=== PATIENT | male | born 1980 | race African-American/Black ===

== ENCOUNTER 2017-03-24 20:50 | Emergency (ER) | payer SELFPAY ==
[~2017-03-24] VITALS: Ht 170.2 cm; Wt 75.0 kg
[2017-03-24 20:52] VITALS: BP 148/88; PULSE 102; RESP 15; TEMP 98.5; O2SAT 98
[2017-03-25] MEDS ORDERED: TETANUS/DIPHTHERIA TOXOID ADULT 0.5 ML VIAL IM ONE (00:15)
[2017-03-25] MEDS ORDERED: VANCOMYCIN INJ 1,000 MG in SODIUM CHLOR 0.9% 250 ML INJ 250 ML IV ONE (00:15)
[2017-03-25] MEDS ORDERED: BACT800T5 PO (00:21)
[2017-03-25] MEDS ORDERED: CLIN150C14 PO (00:21)
[2017-03-25] MEDS ORDERED: IBUP-232 PO (00:21)
--- NOTE | 2017-03-25 00:21 | PD ---
HPI Chief Complaint: Skin Problem Time Seen by Provider: 23:47 Travel History International Travel<30 days: No Contact w/Intl Traveler<30days: No Traveled to known affect area: No History of Present Illness HPI 36-year-old male complains of pain and swelling left leg. Patient states that he probably got an insect bite several days ago. Patient states he has increasing pain and swelling left thigh since then. Patient states that he squeezed the left thigh and got some pus out of it yesterday. Patient denies any fever chills. Patient's not up-to-date with TD booster. PFSH Past Medical History Medical History: Denies Significant Hx Diminished Hearing: No Tetanus Vaccination: Unknown Influenza Vaccination: No Past Surgical History Surgical History: No Previous Surgery Social History Alcohol Use: Yes (OCCASIONALLY) Tobacco Use: Yes Substance Use: No Allergies-Medications (Allergen,Severity, Reaction): Coded Allergies: No Known Allergies (Unverified , 03/24/17) Reported Meds & Prescriptions Reported Meds & Active Scripts Active No Active Prescriptions or Reported Medications Review of Systems General / Constitutional: No: Fever Eyes: No: Visual changes HENT: No: Headaches Cardiovascular: No: Chest Pain or Discomfort Respiratory: No: Shortness of Breath Gastrointestinal: No: Abdominal Pain Genitourinary: No: Dysuria Musculoskeletal: No: Pain Skin: No Rash Neurologic: No: Weakness Psychiatric: No: Depression Endocrine: No: Polydipsia Hematologic/Lymphatic: No: Easy Bruising Physical Exam Narrative GENERAL: Well-nourished, well-developed patient. SKIN: Focused skin assessment warm/dry. HEAD: Normocephalic. EYES: No scleral icterus. No injection or drainage. NECK: Supple, trachea midline. No JVD or lymphadenopathy. CARDIOVASCULAR: Regular rate and rhythm without murmurs, gallops, or rubs. RESPIRATORY: Breath sounds equal bilaterally. No accessory muscle use. GASTROINTESTINAL: Abdomen soft, non-tender, nondistended. MUSCULOSKELETAL: Patient has an area of redness swelling tenderness anterior lateral aspect of left thigh. No induration noted. Small open wound noted on the left thigh. No discharge. BACK: Nontender without obvious deformity. No CVA tenderness. Neurologic exam normal. Data Data Last Documented VS Vital Signs Date Time Temp Pulse Resp B/P (MAP) Pulse Ox O2 Delivery O2 Flow Rate FiO2 03/24/17 20:52 98.5 102 15 148/88 (108) 98 Room Air Orders Orders Vancomycin Inj (Vancomycin Inj) (03/25/17 00:15) Tetanus/Diphtheria Tox Adult (Tetanus/Di (03/25/17 00:15) MDM Medical Decision Making Medical Screen Exam Complete: Yes Emergency Medical Condition: Yes Differential Diagnosis Differential diagnosis including cellulitis, abscess. Narrative Course 36-year-old male with an area of redness swelling tenderness left thigh. TD booster given. Vancomycin 1 g IV given. Diagnosis Primary Impression: Left leg cellulitis Patient Instructions: General Instructions Additional Instructions: Take medications as directed. Return in 2 days for recheck. Med/Other Pt SpecificInfo: Prescription(s) given Scripts Ibuprofen (Ibuprofen) 600 Mg Tab 600 MG PO TID for Pain, #30 TAB 0 Refills Prov: Cesar Liu MD 03/25/17 Sulfamethoxazole-Trimethoprim (Bactrim DS) 800-160 Mg Tab 1 TAB PO BID for Infection, #20 TAB 0 Refills Prov: Cesar Liu MD 03/25/17 Clindamycin (Clindamycin) 150 Mg Cap 2 TAB PO Q6H for Infection, #80 CAP 0 Refills Prov: Cesar Liu MD 03/25/17 Disposition: 01 DISCHARGE HOME Condition: Stable Cesar Liu MD Mar 25, 2017 00:21
[2017-03-25 02:27] VITALS: BP 135/79; PULSE 97; RESP 18; O2SAT 100
== END 2017-03-25 03:25 | disposition home or self-care (01) ==
LOC: NEPK 20:50 → NEPE 03-25 03:25
DX: L03.116 Cellulitis of left lower limb (principal); Z72.0 Tobacco use; Z23 Encounter for immunization
CPT/HCPCS: 90471; 90714; 96374; 99284; J3370; J7050

== ENCOUNTER 2017-03-28 18:35 | Emergency (ER) | payer SELFPAY ==
[~2017-03-28 18:35] MED LIST: BACT800T5 PO; CLIN150C14 PO; IBUP-232 PO
[2017-03-28 18:37] VITALS: BP 130/74; PULSE 64; RESP 15; TEMP 98.2; O2SAT 99
--- NOTE | 2017-03-28 19:42 | PD ---
HPI Chief Complaint: Skin Problem Time Seen by Provider: 19:27 Travel History International Travel<30 days: No Contact w/Intl Traveler<30days: No Traveled to known affect area: No History of Present Illness HPI Patient comes back to the emergency Department for recheck of questionable spider bite to his left thigh. Patient states he was seen here several days ago and is here for recheck. Patient states he is taking all medication as prescribed. Patient denies any change in symptoms. Pain is worse to palpation. Denies any radiation of the pain. Pain is burning/throbbing like in nature. Patient tried placing warm compresses made the area feels cold. Denies any fevers or IV drug use. PFSH Past Medical History Medical History: Denies Significant Hx Diminished Hearing: No Social History Alcohol Use: Yes (OCCASIONALLY) Tobacco Use: Yes Substance Use: No Allergies-Medications (Allergen,Severity, Reaction): Coded Allergies: No Known Allergies (Unverified , 03/24/17) Reported Meds & Prescriptions Reported Meds & Active Scripts Active Ibuprofen 600 Mg Tab 600 Mg PO TID Bactrim DS (Sulfamethoxazole-Trimethoprim) 800-160 Mg Tab 1 Tab PO BID Clindamycin (Clindamycin HCl) 150 Mg Cap 2 Tab PO Q6H Review of Systems Except as stated in HPI: all other systems reviewed are Neg Physical Exam Narrative GENERAL: Well-developed, well nourished, in no acute distress, and non-ill appearing. SKIN: Induration fluctuation of left lateral thigh. There is no drainage. Is tender to palpation. There is no crepitus. HEAD: Atraumatic. Normocephalic. EYES: Pupils equal and round. EOMI. No scleral icterus. No injection or drainage. ENT: No nasal bleeding or discharge. Mucous membranes pink and moist. NECK: Trachea midline. Supple. No nuclear rigidity. RESPIRATORY: No accessory muscle use. No respiratory distress. MUSCULOSKELETAL: No obvious deformities. No clubbing. No cyanosis. No edema. Full range of motion. NEUROLOGICAL: Awake and alert. No obvious cranial nerve deficits. Motor grossly within normal limits. Normal speech. PSYCHIATRIC: Appropriate mood and affect; insight and judgment normal. Data Data Last Documented VS Vital Signs Date Time Temp Pulse Resp B/P (MAP) Pulse Ox O2 Delivery O2 Flow Rate FiO2 03/28/17 18:37 98.2 64 15 130/74 (92) 99 Orders Orders Wound Culture And Gram Stain (03/28/17 19:37) Bupivacaine-Epi Pf 0.5% Inj (Sensorcaine (03/28/17 19:45) Lidocaine 1% Inj (Xylocaine 1% Inj) (03/28/17 19:45) Ed Discharge Order (03/28/17 20:07) MDM Medical Decision Making Medical Screen Exam Complete: Yes Emergency Medical Condition: Yes Medical Record Reviewed: Yes Differential Diagnosis Abscess, cellulitis, gangrene, folliculitis, other Narrative Course The patient has no evidence of significant cellulitis. There is no evidence of necrotizing fasciitis/ [place] at this time. The patient is to continue his antibiotics. The patient was given signs and symptoms warnings for worsening infection, such as spreading of redness, increasing pain, and/or swelling, associated heat, or fever or feels worse, and instructed to return immediately if these signs or symptoms worsen. The patient is to return in 2 days for recheck. Sooner if worsens or as needed. The patient agrees with plan. Patient in no obvious distress upon re-evaluation. Any questions/concerns in reference to patient diagnosis/condition discussed and clarified prior to patient's discharge. Reinforced sheer importance of close follow up with patient 's primary physician or primary care clinic. Instructed patient to return to ED immediately, if symptoms return/worsen. Patient showed understanding of above instructions. Further instructions and recommendations were detailed in discharge paperwork. Patient ambulated without difficulty out of ED at discharge. Procedures Procedure Narrative INCISION AND DRAINAGE OF ABSCESS: Verbal consent was obtained. The area was prepped. A subcutaneous wheal of 1% Xylocaine without epi with a total number 3 mL was used to anesthetize the area. The area was properly anesthetized. A number 11 scalpel was used to make a - -cm incision across the area of the abscess. The abscess was drained and irrigated with normal saline. Quarter inch iodoform packing was placed in the wound. Sterile dressing applied by nurse. Patient tolerated procedure well. Patient advised to return here in 2 days to have packing removed and wound rechecked. Patient verbalized understanding. Diagnosis Primary Impression: Abscess of left thigh Referrals: [facility] Patient Instructions: Abscess (ED), Abscess Incision and Drainage (DC), General Instructions Additional Instructions: Follow-up with your primary care physician or return here in 2 days for recheck. Take all medication as previously prescribed. Apply warm compresses to affected area to facilitate drainage. Return to the emergency department if symptoms get worse. Disposition: 01 DISCHARGE HOME Condition: Stable Karthik Barrientos Mar 28, 2017 19:42
[2017-03-28] MEDS ORDERED: LIDOCAINE HCL 1% 30 ML VIAL INFIL ONE (19:45)
[2017-03-28] MEDS ORDERED: BUPIVACAINE/EPINEPHRINE 0.5% PF 30 ML VIAL NERV BLOCK ONE (19:45)
== END 2017-03-28 21:31 | disposition home or self-care (01) ==
LOC: NEPK 18:35
DX: L02.416 Cutaneous abscess of left lower limb (principal); B95.62 Methicillin resistant Staphylococcus aureus infection as the cause of diseases classified elsewhere; Z72.0 Tobacco use
CPT/HCPCS: 10061; 86403; 87070; 87186; 87205

== ENCOUNTER 2017-03-30 23:20 | Emergency (ER) | payer SELFPAY ==
[~2017-03-30] VITALS: Ht 170.2 cm; Wt 70.0 kg
[2017-03-30 23:22] VITALS: BP 127/76; PULSE 73; RESP 16; TEMP 98; O2SAT 98
--- NOTE | 2017-03-30 23:37 | PD ---
HPI Chief Complaint: Skin Problem Time Seen by Provider: 23:29 Travel History International Travel<30 days: No Contact w/Intl Traveler<30days: No Traveled to known affect area: No History of Present Illness HPI 36-year-old black male presents from her department for a 2 day recheck of a abscess IND of his left thigh. The patient states that it is much improved. He denies any fever chills. Symptoms are mild. No alleviating factors. No exacerbating factors. PFSH Past Medical History Medical History: Denies Significant Hx Diminished Hearing: No Past Surgical History Surgical History: No Previous Surgery Social History Alcohol Use: Yes (OCCASIONALLY) Tobacco Use: Yes (OCC) Substance Use: No Allergies-Medications (Allergen,Severity, Reaction): Coded Allergies: No Known Allergies (Unverified , 03/30/17) Reported Meds & Prescriptions Reported Meds & Active Scripts Active Ibuprofen 600 Mg Tab 600 Mg PO TID Bactrim DS (Sulfamethoxazole-Trimethoprim) 800-160 Mg Tab 1 Tab PO BID Clindamycin (Clindamycin HCl) 150 Mg Cap 2 Tab PO Q6H Review of Systems General / Constitutional: No: Fever Eyes: No: Visual changes HENT: No: Headaches Cardiovascular: No: Chest Pain or Discomfort Respiratory: No: Shortness of Breath Gastrointestinal: No: Abdominal Pain Genitourinary: No: Dysuria Musculoskeletal: No: Pain Skin: No Rash Neurologic: No: Weakness Psychiatric: No: Depression Endocrine: No: Polydipsia Hematologic/Lymphatic: No: Easy Bruising Physical Exam Narrative GENERAL: This is a well-nourished, well-developed patient, in no apparent distress. SKIN: No rashes, ecchymoses or lesions. Warm and dry. HEAD: Atraumatic. Normocephalic. EYES: PERRL, EOMI, no discharge or injection. No scleral icterus. EARS: Clear NOSE: Nasal turbinates appear normal. THROAT: Mucosa pink and moist. Airway patent. NECK: Trachea midline. supple, moves head freely. LUNGS: Clear to auscultation. CV: Regular in rhythm. ABDOMEN: Soft nontender. EXT: No clubbing cyanosis or edema. Patient has resolving abscess to left thigh. The dressing is removed as well as the packing. There is no fluctuance or pointing. This chronic tissue is mildly indurated and tender. Erythema is much improved. Data Data Last Documented VS Vital Signs Date Time Temp Pulse Resp B/P (MAP) Pulse Ox O2 Delivery O2 Flow Rate FiO2 03/30/17 23:22 98.0 73 16 127/76 (93) 98 Room Air Orders Orders Ed Discharge Order (03/30/17 23:35) MDM Medical Decision Making Medical Screen Exam Complete: Yes Emergency Medical Condition: Yes Medical Record Reviewed: Yes Differential Diagnosis MDM: High Differential diagnoses: Abscess, folliculitis, cellulitis, lymphangitis, abrasion, contact dermatitis Narrative Course Healing left thigh abscess Diagnosis Primary Impression: healing left thigh abscess Patient Instructions: General Instructions Additional Instructions: Rest. Elevation. keep clean and dry. Warm compresses. Daily wound care with soap, water and Neosporin. Three Advil every 6 hours. Medication to complete. Follow-up with a primary care doctor in one week. Return to the ER for any problems. Med/Other Pt SpecificInfo: Wound Care Disposition: 01 DISCHARGE HOME Condition: Stable Mannie Acevedo Mar 30, 2017 23:37
== END 2017-03-31 00:07 | disposition home or self-care (01) ==
LOC: NEPD 23:20
DX: L02.416 Cutaneous abscess of left lower limb (principal); Z51.89 Encounter for other specified aftercare; Z72.0 Tobacco use
CPT/HCPCS: 99281

== ENCOUNTER 2017-04-14 23:43 | Emergency (ER) | payer SELFPAY ==
[2017-04-14 23:46] VITALS: BP 120/66; PULSE 70; RESP 16; TEMP 97.6; O2SAT 98
[2017-04-15] MEDS ORDERED: DICL75TA PO (01:11)
[2017-04-15] MEDS ORDERED: BACT800T5 PO (01:11)
[2017-04-15] MEDS ORDERED: NAPROXEN 500 MG TAB PO ONE (01:15)
[2017-04-15] MEDS ORDERED: SULFAMETHOXAZOLE-TRIMETHOPRIM DS 800-160 MG TAB PO ONE (01:15)
--- NOTE | 2017-04-15 01:23 | PD ---
HPI Chief Complaint: Wound/Suture/Staple Re-Check Time Seen by Provider: 00:57 Travel History International Travel<30 days: No Contact w/Intl Traveler<30days: No Traveled to known affect area: No History of Present Illness HPI 36-year-old black male presents emergency Department with complaints of left wrist and hand pain. Patient states that over the last few days he has developed pain mainly in his thumb. He examined his hand and noticed a painful lump to the volar radial wrist. Patient denies any trauma. He states that the pain is worse when he moves his thumb her grasps. Some relief with elevation. He also states that he had a abscess to his left thigh a few weeks ago and he has noticed some increasing tenderness and thickening to the top portion. Small amount of pus discharge. PFSH Past Medical History Narrative Medical Abscess Diminished Hearing: No Tetanus Vaccination: < 5 Years ?: Not Past Surgical History Surgical History: No Previous Surgery Social History Alcohol Use: Yes (OCCASIONALLY) Tobacco Use: Yes (OCC) Substance Use: No Allergies-Medications (Allergen,Severity, Reaction): Coded Allergies: No Known Allergies (Unverified , 03/30/17) Reported Meds & Prescriptions Reported Meds & Active Scripts Active Diclofenac Sodium DR (Diclofenac Sodium) 75 Mg Tabdr 75 Mg PO BID Bactrim DS (Sulfamethoxazole-Trimethoprim) 800-160 Mg Tab 1 Tab PO BID Review of Systems General / Constitutional: No: Fever Eyes: No: Visual changes HENT: No: Headaches Cardiovascular: No: Chest Pain or Discomfort Respiratory: No: Shortness of Breath Gastrointestinal: No: Abdominal Pain Genitourinary: No: Dysuria Musculoskeletal: Positive: Arthralgias, Limited ROM, Weakness, Cramping, Edema , Pain Skin: No Rash Neurologic: No: Weakness Psychiatric: No: Depression Endocrine: No: Polydipsia Hematologic/Lymphatic: No: Easy Bruising Physical Exam Narrative GENERAL: This is a well-nourished, well-developed patient, in no apparent distress. SKIN: Examination the patient's left thigh reveals a area of healed abscess. There is a area of induration just above it measuring 3 x 3 cm of induration him a erythema warmth and thickening. Appears that there is some developing secondary wound infection., ecchymoses or lesions. Warm and dry. HEAD: Atraumatic. Normocephalic. EYES: PERRL, EOMI, no discharge or injection. No scleral icterus. EARS: Clear NOSE: Nasal turbinates appear normal. THROAT: Mucosa pink and moist. Airway patent. NECK: Trachea midline. supple, moves head freely. LUNGS: Clear to auscultation. CV: Regular in rhythm. ABDOMEN: Soft nontender. EXT: No clubbing cyanosis or edema. Examination of the left upper extremity reveals tenderness over the volar radial wrist with a 1 cm nodular density under the skin. There is some tenderness up into the thenar eminence and into the MCP of the thumb. He has decreased range of motion due to pain. There is no pain in the index, middle, ring, little finger he has intact gross sensation and good pulses. The compartments of the forearm are supple. Doppler of the pulses are normal. There are loud audible. No pain in the forearm, elbow or shoulder. Data Data Last Documented VS Vital Signs Date Time Temp Pulse Resp B/P (MAP) Pulse Ox O2 Delivery O2 Flow Rate FiO2 04/14/17 23:46 97.6 70 16 120/66 (84) 98 Room Air Orders Orders Sulfamet-Trimeth Ds 800-160 Mg (Bactrim (04/15/17 01:15) Naproxen (Naprosyn) (04/15/17 01:15) [facility] Medical Decision Making Medical Screen Exam Complete: Yes Emergency Medical Condition: Yes Medical Record Reviewed: Yes Differential Diagnosis Differential diagnoses: Cellulitis, abscess, sebaceous cyst, ganglion cyst, tendinitis, arthritis Narrative Course Patient's given Bactrim DS and Naprosyn 500 mg by mouth. This is left thigh cellulitis, left thumb tendinitis, left wrist ganglion cyst Diagnosis Primary Impression: Cellulitis of left thigh Additional Impressions: left thumb tendinitis Ganglion cyst of volar aspect of left wrist Patient Instructions: General Instructions Additional Instructions: Rest. Elevation. Warm compresses. Daily wound care with soap, water, Neosporin. Medications as directed. Follow-up with a medical doctor in one week. Return to the ER for any problems. Med/Other Pt SpecificInfo: Prescription(s) given Scripts Diclofenac Sodium (Diclofenac Sodium DR) 75 Mg Tabdr 75 MG PO BID, #20 TAB 0 Refills Prov: Aileen Herr DO 04/15/17 Sulfamethoxazole-Trimethoprim (Bactrim DS) 800-160 Mg Tab 1 TAB PO BID for Infection, #20 TAB 0 Refills Prov: Aileen Herr DO 04/15/17 Mannie Acevedo Apr 15, 2017 01:23
== END 2017-04-15 02:11 | disposition home or self-care (01) ==
LOC: NEPD 23:43
DX: L03.116 Cellulitis of left lower limb (principal); M77.9 Enthesopathy, unspecified; M67.432 Ganglion, left wrist; Z72.0 Tobacco use
CPT/HCPCS: 99284

== ENCOUNTER 2017-04-16 05:05 | Inpatient (IN) | payer SELFPAY ==
[~2017-04-16] VITALS: Ht 170.2 cm; Wt 71.4 kg
[~2017-04-16 05:05] MED LIST changes: -CLIN150C14 PO; +DICL75TA PO; -IBUP-232 PO
[2017-04-16 05:07] VITALS: BP 167/92; PULSE 130; RESP 22; TEMP 100; O2SAT 96
--- NOTE | 2017-04-16 05:49 | PD ---
HPI Chief Complaint: Bite or Sting Time Seen by Provider: 05:42 Travel History International Travel<30 days: No Contact w/Intl Traveler<30days: No Traveled to known affect area: No History of Present Illness HPI Patient is a 36-year-old male who is coming in saying that he developed burning pain on the back blisters that were fluid filled and he felt something running across him like a caterpillar. He has pain that he feels the shaking chills pain is localized he said the fluid popped out of the blisters and now he has just been excoriated open pink area of tissue. Denies being burned denies allergic reaction he was in the ER last night was given one dose of antibiotic and sent home with a prescription which she did not fill. At that time he had his hand is mildly swollen but today his hand looks fine. He is complaining of shaking chills localized pain he is not taking anything for the pain and he is not taking the antibiotic. In the ER his temperature 100.0 PFSH Past Medical History Medical History: Denies Significant Hx Diminished Hearing: No Past Surgical History Surgical History: No Previous Surgery Social History Alcohol Use: Yes (OCCASIONALLY) Tobacco Use: Yes (OCC) Substance Use: No Allergies-Medications (Allergen,Severity, Reaction): Coded Allergies: No Known Allergies (Unverified , 04/16/17) Reported Meds & Prescriptions Reported Meds & Active Scripts Active Diclofenac Sodium DR (Diclofenac Sodium) 75 Mg Tabdr 75 Mg PO BID Bactrim DS (Sulfamethoxazole-Trimethoprim) 800-160 Mg Tab 1 Tab PO BID Review of Systems Except as stated in HPI: all other systems reviewed are Neg Skin: Positive Lesions (he has blisters that look like it popped and he has open pink tissue where the skin is been excoriated as in a second-degree burn.) Physical Exam Narrative GENERAL: TEMP 100 at traige SKin on back of left scapular to left upper humeral area to axilla have bullae that has pealed off and few intact bullae. erythema excoriation to area under his arm 4 cm areas of 2nd degree type [place] SKIN: bullae and excoriation under left axilla to humeral posterio arm and trunk HEAD: Atraumatic. Normocephalic. EYES: Pupils equal and round. No scleral icterus. No injection or drainage. ENT: No nasal bleeding or discharge. Mucous membranes pink and moist. NECK: Trachea midline. No JVD. CARDIOVASCULAR: Regular rate and rhythm. RESPIRATORY: No accessory muscle use. Clear to auscultation. Breath sounds equal bilaterally. GASTROINTESTINAL: Abdomen soft, non-tender, nondistended. Hepatic and splenic margins not palpable. MUSCULOSKELETAL: Extremities without clubbing, cyanosis, or edema. No obvious deformities. NEUROLOGICAL: Awake and alert. No obvious cranial nerve deficits. Motor grossly within normal limits. Five out of 5 muscle strength in the arms and legs. Normal speech. PSYCHIATRIC: Appropriate mood and affect; insight and judgment normal. Data Data Last Documented VS Vital Signs Date Time Temp Pulse Resp B/P (MAP) Pulse Ox O2 Delivery O2 Flow Rate FiO2 04/16/17 05:07 100.0 130 22 167/92 (117) 96 Orders Orders Complete Blood Count With Diff (04/16/17 05:42) Comprehensive Metabolic Panel (04/16/17 05:42) Blood Culture (04/16/17 05:42) Bacitracin Oint (Baciguent Oint) (04/16/17 06:00) Sodium Chlor 0.9% 1000 Ml Inj (Ns 1000 M (04/16/17 07:00) Sodium Chlor 0.9% 1000 Ml Inj (Ns 1000 M (04/16/17 07:00) Diphenhydramine Inj (Benadryl Inj) (04/16/17 07:30) Dext 5%-Nacl 0.45% 1000 Ml Inj (D5w-/2 (04/16/17 07:30) Methylprednisolone So Succ Inj (Solumedr (04/16/17 07:45) Admit Order (Ed Use Only) (04/16/17 07:51) Labs Laboratory Tests Test 04/16/17 06:15 White Blood Count 5.8 TH/MM3 Red Blood Count 4.23 MIL/MM3 Hemoglobin 13.4 GM/DL Hematocrit 38.2 % Mean Corpuscular Volume 90.4 FL Mean Corpuscular Hemoglobin 31.8 PG Mean Corpuscular Hemoglobin Concent 35.1 % Red Cell Distribution Width 13.6 % Platelet Count 232 TH/MM3 Mean Platelet Volume 9.4 FL Neutrophils (%) (Auto) 89.1 % Lymphocytes (%) (Auto) 2.8 % Monocytes (%) (Auto) 5.2 % Eosinophils (%) (Auto) 2.5 % Basophils (%) (Auto) 0.4 % Neutrophils # (Auto) 5.1 TH/MM3 Lymphocytes # (Auto) 0.2 TH/MM3 Monocytes # (Auto) 0.3 TH/MM3 Eosinophils # (Auto) 0.1 TH/MM3 Basophils # (Auto) 0.0 TH/MM3 CBC Comment DIFF FINAL Differential Comment Blood Urea Nitrogen 33 MG/DL Creatinine 2.02 MG/DL Random Glucose 66 MG/DL Total Protein 7.4 GM/DL Albumin 3.1 GM/DL Calcium Level 8.0 MG/DL Alkaline Phosphatase 102 U/L Aspartate Amino Transf (AST/SGOT) 412 U/L Alanine Aminotransferase (ALT/SGPT) 358 U/L Total Bilirubin 0.7 MG/DL Sodium Level 132 MEQ/L Potassium Level 5.2 MEQ/L Chloride Level 102 MEQ/L Carbon Dioxide Level 20.1 MEQ/L Anion Gap 10 MEQ/L Estimat Glomerular Filtration Rate 46 ML/MIN MDM Medical Decision Making Medical Screen Exam Complete: Yes Emergency Medical Condition: Yes Differential Diagnosis allergic reaction local to SJS or TEN or burn from topical chemical or thermal Narrative Course pt was given bactrim yesterday , now probable drug reaction.. pt electrolytes and kidney function labs are off and needs hydration and steroids to avoid allergic reaction progression to SJS or TEN Diagnosis Primary Impression: Allergic reaction Qualified Codes: T78.40XA - Allergy, unspecified, initial encounter Julián Hare MD Apr 16, 2017 05:49
[2017-04-16] MEDS ORDERED: BACITRACIN TOP OINT 15 GM TUBE TOPICAL ONE (06:00)
[2017-04-16 06:24] LABS: AUTOMATED NEUTROPHIL # 5.1 TH/MM3 (1.8-7.7); BASOPHIL % 0.4 % (0.0-2.0); EOSINOPHIL # 0.1 TH/MM3 (0-0.4); EOSINOPHIL % 2.5 % (0.0-4.0); HEMATOCRIT 38.2 % (39.0-51.0); HEMO FLAGS DIFF FINAL; LYMPH % 2.8 % (9.0-44.0); LYMPHOCYTE # 0.2 TH/MM3 (1.0-4.8); MEAN CELL VOLUME 90.4 FL (80.0-100.0); MEAN CORPUSCULAR HEMOGLOBIN 31.8 PG (27.0-34.0); MEAN CORPUSCULAR HGB CONC 35.1 % (32.0-36.0); MONO % 5.2 % (0.0-8.0); NEUT % 89.1 % (16.0-70.0); PLATELET COUNT 232 TH/MM3 (150-450); RED BLOOD COUNT 4.23 MIL/MM3 (4.50-5.90); RED CELL DISTRIBUTION WIDTH 13.6 % (11.6-17.2); WHITE BLOOD COUNT 5.8 TH/MM3 (4.0-11.0)
[2017-04-16 06:42] LABS: ALKALINE PHOSPHATASE 102 U/L (45-117); TOTAL BILIRUBIN ADULT 0.7 MG/DL (0.2-1.0)
[2017-04-16 06:43] LABS: ALT (GPT) 358 U/L (12-78); ANION GAP 10 MEQ/L (5-15); AST (GOT) 412 U/L (15-37); BICARBONATE 20.1 MEQ/L (21.0-32.0); BLOOD UREA NITROGEN 33 MG/DL (7-18); CHLORIDE 102 MEQ/L (98-107); GLOMERULAR FILTRATION RATE 46 ML/MIN (>89); POTASSIUM 5.2 MEQ/L (3.5-5.1); SODIUM (NA) 132 MEQ/L (136-145)
[2017-04-16] MEDS ORDERED: SODIUM CHLOR 0.9% 1000 ML INJ 1,000 ML IV ONE ×4 (07:00→20:00)
[2017-04-16] MEDS ORDERED: diphenhydrAMINE HCL 50 MG/ML VIAL IV PUSH ONE (07:30)
[2017-04-16] MEDS ORDERED: DEXT 5%-NACL 0.45% 1000 ML INJ 1,000 ML IV SCH (07:30)
[2017-04-16] MEDS ORDERED: methylPREDNISolone SOD SUCC 125 MG/2 ML VIAL IV PUSH ONE (07:45)
[2017-04-16 08:16] VITALS: BP 158/89; PULSE 102; RESP 18; O2SAT 98
[2017-04-16] MEDS ORDERED: SENNOSIDES 8.6 MG TAB PO PRN (08:30)
[2017-04-16] MEDS ORDERED: SODIUM CHLORIDE 0.9% FLUSH 10 ML FLUSH IV FLUSH PRN (08:30)
[2017-04-16] MEDS ORDERED: ONDANSETRON HCL 4 MG/2 ML VIAL IVP PRN (08:30)
[2017-04-16] MEDS ORDERED: ACETAMINOPHEN 325 MG TAB PO PRN (08:30)
[2017-04-16] MEDS ORDERED: NALOXONE HCL 0.4 MG/ML AMP IV PUSH PRN (08:30)
[2017-04-16] MEDS ORDERED: LACTULOSE SYRUP 20 GM/30 ML CUP PO PRN (08:30)
[2017-04-16] MEDS ORDERED: MAGNESIUM HYDROXIDE SUSP 30 ML CUP PO PRN (08:30)
[2017-04-16] MEDS ORDERED: BISACODYL 10 MG SUPP RECTAL PRN (08:30)
[2017-04-16] MEDS: DOCUSATE SODIUM 50 MG/SENNA 8.6 MG TAB PO SCH ×2 (09:00→21:00)
[2017-04-16] MEDS: SODIUM CHLOR 0.9% 1000 ML INJ 1,000 ML IV SCH ×2 (09:00→22:20)
[2017-04-16] MEDS: SODIUM CHLORIDE 0.9% FLUSH 10 ML FLUSH IV FLUSH SCH ×2 (09:00→21:00)
[2017-04-16] MEDS ORDERED: Vancomycin Consult Pharmacy 1 EA OTHER SCH ×2 (09:15→15:15)
[2017-04-16] MEDS ORDERED: oxyCODONE/ACETAMINOPHEN 5 MG/325 MG TAB PO PRN (09:30)
--- NOTE | 2017-04-16 09:30 | HHI.HP ---
[facility] Service [facility] Primary Care Physician No Primary Care Physician Admission Diagnosis toxic epidermal necrosis Diagnoses: Travel History International Travel<30 Days: No Contact w/Intl Traveler <30 Da: No Traveled to Known Affected Are: No History of Present Illness 36-year-old male with a past medical history significant for recent left inner thigh abscess presents to the emergency department with a 2 day history of left hand pain and new onset desquamation on the left shoulder and trunk. Patient was seen in the emergency department on 03/25 for a left inner thigh abscess where he was given a 10 day prescription of Bactrim and discharged to home. He returned on 03/28 where an I&D was performed. Patient was instructed to continue his antibiotics which he did. He returned to the emergency department yesterday with a chief complaint of left wrist and hand pain. He was diagnosed with left thumb tendinitis, ganglion cyst of the left wrist and continued left inner thigh cellulitis. He was given another dose of Bactrim and discharged to home with a prescription for Bactrim. The patient did not fill his prescription. He reports that yesterday he developed burning pain and blisters on his posterior left arm and trunk. He states the blisters ruptured in the skin fell off. He has areas of open pink tissue where the skin has sloughed off. He complains of severe pain in his left hand and reports decreased strength in that hand. He also reports that his left inner thigh cellulitis is starting to worsen as the area is becoming thick and continues to drain small amounts of purulent material. Review of Systems Positive fever or chills Denies blurry vision, otorrhea, rhinorrhea Denies sore throat and cough No chest pain, palpitations, shortness of breath No abdominal pain Denies constipation/diarrhea/nausea/vomiting LUE pain/weakness No rashes Past Family Social History Past Medical History None Past Surgical History Unspecified right ear surgery Reported Medications Reported Meds & Active Scripts Active Diclofenac Sodium DR (Diclofenac Sodium) 75 Mg Tabdr 75 Mg PO BID Bactrim DS (Sulfamethoxazole-Trimethoprim) 800-160 Mg Tab 1 Tab PO BID Allergies: Coded Allergies: No Known Allergies (Unverified , 04/16/17) Family History No family history of coronary artery disease or diabetes mellitus. Social History Occasional tobacco. Occasional alcohol. Denies marijuana or illicit drugs. Physical Exam Vital Signs Vital Signs Date Time Temp Pulse Resp B/P (MAP) Pulse Ox O2 Delivery O2 Flow Rate FiO2 04/16/17 08:16 102 18 158/89 (112) 98 Room Air 04/16/17 05:07 100.0 130 22 167/92 (117) 96 Physical Exam GENERAL: male lying in bed SKIN: 5 x 3 centimeter area of induration left inner thigh. No drainage. No fluctuance. Multiple areas of desquamation with a few intact bulla posterior aspect of left arm and shoulder and trunk. HEAD: Atraumatic. Normocephalic. No temporal or scalp tenderness. EYES: Pupils equal round and reactive. Extraocular motions intact. No scleral icterus. No injection or drainage. ENT: Nose without bleeding, purulent drainage or septal hematoma. Throat without erythema, tonsillar hypertrophy or exudate. Uvula midline. Airway patent. NECK: Trachea midline. No JVD or lymphadenopathy. Supple, nontender, no meningeal signs. CARDIOVASCULAR: Regular rate and rhythm without murmurs, gallops, or rubs. RESPIRATORY: Clear to auscultation. Breath sounds equal bilaterally. No wheezes , rales, or rhonchi. GASTROINTESTINAL: Abdomen soft, non-tender, nondistended. No hepato-splenomegaly , or palpable masses. No guarding. MUSCULOSKELETAL: Extremities without clubbing, cyanosis, or edema. No joint tenderness, effusion, or edema noted. No calf tenderness. NEUROLOGICAL: Awake and alert. Cranial nerves II through XII intact. Motor and sensory grossly within normal limits. Normal speech. Laboratory Laboratory Tests Test 04/16/17 06:15 White Blood Count 5.8 Red Blood Count 4.23 Hemoglobin 13.4 Hematocrit 38.2 Mean Corpuscular Volume 90.4 Mean Corpuscular Hemoglobin 31.8 Mean Corpuscular Hemoglobin Concent 35.1 Red Cell Distribution Width 13.6 Platelet Count 232 Mean Platelet Volume 9.4 Neutrophils (%) (Auto) 89.1 Lymphocytes (%) (Auto) 2.8 Monocytes (%) (Auto) 5.2 Eosinophils (%) (Auto) 2.5 Basophils (%) (Auto) 0.4 Neutrophils # (Auto) 5.1 Lymphocytes # (Auto) 0.2 Monocytes # (Auto) 0.3 Eosinophils # (Auto) 0.1 Basophils # (Auto) 0.0 CBC Comment DIFF FINAL Differential Comment Blood Urea Nitrogen 33 Creatinine 2.02 Random Glucose 66 Total Protein 7.4 Albumin 3.1 Calcium Level 8.0 Alkaline Phosphatase 102 Aspartate Amino Transf (AST/SGOT) 412 Alanine Aminotransferase (ALT/SGPT) 358 Total Bilirubin 0.7 Sodium Level 132 Potassium Level 5.2 Chloride Level 102 Carbon Dioxide Level 20.1 Anion Gap 10 Estimat Glomerular Filtration Rate 46 Date/Time Source Procedure Growth Status 04/16/17 06:15 Blood Peripheral Aerobic Blood Culture Pending Received 04/16/17 06:15 Blood Peripheral Anaerobic Blood Culture Pending Received Result Diagram: 04/16/1715 04/16/1715 Capdannie VTE Risk Assessment Kuldip VTE Risk Assessment: No/Low Risk (score <= 1) Caprini Risk Assessment Model Point Value = 1 Point Value = 2 Point Value = 3 Point Value = 5 Age 41-60 Minor surgery BMI > 25 kg/m2 Swollen legs Varicose veins or History of unexplained or recurrent spontaneous Oral contraceptives or hormone replacement Sepsis (< 1 month) Serious lung disease, including pneumonia (< 1 month) Abnormal pulmonary function Acute myocardial infarction Congestive heart failure (< 1 month) History of inflammatory bowel disease Medical patient at bed rest Age 61-74 Arthroscopic surgery Major open surgery (> 45 min) Laparoscopic surgery (> 45 min) Malignancy Confined to bed (> 72 hours) Immobilizing plaster cast Central venous access Age >= 75 History of VTE Family history of VTE Factor V Leiden Prothrombin [id number] Lupus anticoagulant Anticardiolipin antibodies Elevated serum homocysteine Heparin-induced thrombocytopenia Other congenital or acquired thrombophilia Stroke (< 1 month) Elective arthroplasty Hip, pelvis, or leg fracture Acute spinal cord injury (< 1 month) Prophylaxis Regimen Total Risk Factor Score Risk Level Prophylaxis Regimen 0-1 Low Early ambulation 2 Moderate Order ONE of the following: *Sequential Compression Device (SCD) *Heparin 5000 units SQ BID 3-4 Higher Order ONE of the following medications: *Heparin 5000 units SQ TID *Enoxaparin/Lovenox 40 mg SQ daily (WT < 150 kg, CrCl > 30 mL/min) *Enoxaparin/Lovenox 30 mg SQ daily (WT < 150 kg, CrCl > 10-29 mL/min) *Enoxaparin/Lovenox 30 mg SQ BID (WT < 150 kg, CrCl > 30 mL/min) AND/OR *Sequential Compression Device (SCD) 5 or more Highest Order ONE of the following medications: *Heparin 5000 units SQ TID (Preferred with Epidurals) *Enoxaparin/Lovenox 40 mg SQ daily (WT < 150 kg, CrCl > 30 mL/min) *Enoxaparin/Lovenox 30 mg SQ daily (WT < 150 kg, CrCl > 10-29 mL/min) *Enoxaparin/Lovenox 30 mg SQ BID (WT < 150 kg, CrCl > 30 mL/min) AND *Sequential Compression Device (SCD) Assessment and Plan Assessment and Plan 36-year-old male with left inner thigh MRSA cellulitis status post I&D presents with left hand pain/swelling and multiple areas of desquamation left shoulder/ trunk. 1. Desquamation/cannot rule out toxic epidermal necrosis Patient recently completed a ten-day course of Bactrim and was given another dose of Bactrim yesterday in the ED Denies any ogden or trauma to the area Supportive care with wound care consulted, appreciate assistance Monitor closely for signs of infection or progression 2. Left inner thigh cellulitis Status post I&D on 03/28, wound cultures positive for MRSA Completed course of Bactrim Lactic acid pending Per patient report, area continues to drain small amounts of purulent material and is again increasing in size Vancomycin Blood cultures pending Infectious disease consulted, appreciate assistance 3. Left hand swelling/pain No areas of erythema or induration Cannot rule out infection at this time MRI pending 4. LENORA Creatinine 2.02, baseline unknown IV fluid hydration Avoid nephrotoxic agents Follow renal function 5. Transaminitis AST/ALT 412/358 with no labs for comparison Hepatitis profile pending Monitor Patient will need outpatient follow-up FEN Heart healthy diet NS at 75 cc/hr Electrolytes: monitor and replete prn SCDs Physician Certification 2 Midnight Certification Type: Admission for Inpatient Services Order for Inpatient Services The services are ordered in accordance with Medicare regulations or non- Medicare payer requirements, as applicable. In the case of services not specified as inpatient-only, they are appropriately provided as inpatient services in accordance with the 2-midnight benchmark. Estimated LOS (days): 2 2 days is the estimated time the patient will need to remain in the hospital, assuming treatment plan goals are met and no additional complications. Post-Hospital Plan: Not yet determined Aileen Harvey MD Apr 16, 2017 09:30
[2017-04-16] MEDS ORDERED: GADODIAMIDE PF 287 MG/ML 20 ML VIAL (for RAD MRI) IVCONTRAST ONE (09:48)
--- NOTE | 2017-04-16 10:17 | RADRPT ---
EXAM DATE/TIME: 04/16/2017 09:26 [facility] COMPARISON: No previous studies available for comparison. INDICATIONS : Edema. Pain 1st metacarpel/carpel joint. CONTRAST: 14 cc Omniscan (gadodiamide) IV MEDICAL HISTORY : None. SURGICAL HISTORY : None. ENCOUNTER: Initial ACUITY: 1 day PAIN SCORE: 2/10 LOCATION: Left hand/wrist TECHNIQUE: Multiplanar, multisequence MRI examination was performed without contrast and after the intravenous a dministration of gadolinium. FINDINGS: BONE/CARTILAGE: Bone marrow signal is homogeneous. First carpal metacarpal joint appears unremarkable. There are some ganglion cyst laterally involving the carpus largest measures 11 x 6 mm. Small cyst involving the tr apezium. Articular cartilage signal is within normal limits. TENDONS: All of the visualized tendons are intact. MISCELLANEOUS: No evidence of joint effusion. POST-CONTRAST: There are no abnormal areas of enhancement on the post-contrast images. CONCLUSION: 1. Small ganglion cysts bilaterally. 2. No fracture or bony abnormality. Joints are intact. Boom Guerrero MD on April 16, 2017 at 10:12 Board Certified Radiologist. This report was verified electronically.
[2017-04-16 10:44] VITALS: BP 71/35; PULSE 113; RESP 17; TEMP 101; O2SAT 93
[2017-04-16] MEDS ORDERED: VANCOMYCIN INJ 1,250 MG in SODIUM CHLOR 0.9% 250 ML INJ 250 ML IV ONE (12:00)
[2017-04-16 12:45] VITALS: BP 153/119; PULSE 120; RESP 18; TEMP 99.6; O2SAT 95
--- NOTE | 2017-04-16 15:02 | PD.ID.CON ---
History of Present Illness Service ID Consult Requested By Dr Harvey Reason for Consult celllulitis Primary Care Physician No Primary Care Physician Diagnoses: History of Present Illness 36 yo male who denies any past med history states he was sick for 1 day SHe apparently developped L thigh abscess which he though was a spider bite (he denies seeing the spider) adn was prescribed Bactrim for it He started to take it and dvelopped itchy lesiojns on his back which became denuded after his scratches them He also co pain in his L hand He has MRI done but it only shoed gfanglion cyst I reviewed his labs done on presentation and his creatinine was 2.02 AST/ALT 400 /30s, striking lymphopenia of 200 and lactic acidosis of 2.7 He presentted with fever of 101, he denies feeling feverish before Review of Systems Constitutional: COMPLAINS OF: Fever Ears, nose, mouth, throat: COMPLAINS OF: Oral lesions Integumentary: COMPLAINS OF: Rash Past Family Social History Allergies: Coded Allergies: No Known Allergies (Unverified , 04/16/17) Past Medical History denies any past med history Past Surgical History Unspecified right ear surgery Active Ordered Medications Medications where reviewed Antibiotics Include: none Family History No family history of coronary artery disease or diabetes mellitus. Social History Occasional tobacco. Occasional alcohol. Denies marijuana or illicit drugs. Physical Exam Vital Signs Vital Signs Date Time Temp Pulse Resp B/P (MAP) Pulse Ox O2 Delivery O2 Flow Rate FiO2 04/16/17 12:45 99.6 120 18 153/119 (130) 95 04/16/17 10:44 101.0 113 17 71/35 (47) 93 04/16/17 09:10 04/16/17 08:16 102 18 158/89 (112) 98 Room Air 04/16/17 05:07 100.0 130 22 167/92 (117) 96 Physical Exam CONSTITUTIONAL/GENERAL: This is an adequately nourished patient, in no apparent distress. TUBES/LINES/DRAINS: SKIN: No jaundice, rashes, or lesions. Skin appears to be somewhat erythematous but w/o rash elements Diffuse erythema noted with small soft bullous lesions with a lot of them unroofed and denuded skin is noted on the L arm and L scapula area. Not diaphoretic. L thigh lesion - healing, no actuve purulence HEAD: Atraumatic. Normocephalic. EYES: Pupils equal and round and reactive. Extraocular motions intact. No scleral icterus. No injection or drainage. Fundi not examined. ENT: Hearing grossly normal. Nose without bleeding or purulent drainage. Oral mucosae with extensive whiteish lesions cw oral thrush no ulcerations NECK: Trachea midline. Supple, nontender. No palpable thyroid enlargement or nodularity. CARDIOVASCULAR: Regular rate and rhythm without murmurs, gallops, or rubs. No JVD. Peripheral pulses symmetric. RESPIRATORY/CHEST: Symmetric, unlabored respirations. Clear to auscultation. Breath sounds equal bilaterally. No wheezes, rales, or rhonchi. GASTROINTESTINAL: Abdomen soft, non-tender, nondistended. No hepato-splenomegaly , or palpable masses. No guarding. Bowel sounds present. GENITOURINARY: Without palpable bladder distension. MUSCULOSKELETAL: Extremities without clubbing, cyanosis, + 2+ edema involving LE . No joint tenderness or effusion noted. No calf tenderness. No mottling or clubbing. LYMPHATICS: No palpable cervical or supraclavicular adenopathy. NEUROLOGICAL: Awake and alert. Motor and sensory grossly within normal limits. Follows commands. Cognitively sharp. Moves all extremities. PSYCHIATRIC: No obvious anxiety/depression. no apparent hallucinations or other psychotic thought process. Laboratory Laboratory Tests Test 04/16/17 06:15 04/16/17 12:50 White Blood Count 5.8 Red Blood Count 4.23 Hemoglobin 13.4 Hematocrit 38.2 Mean Corpuscular Volume 90.4 Mean Corpuscular Hemoglobin 31.8 Mean Corpuscular Hemoglobin Concent 35.1 Red Cell Distribution Width 13.6 Platelet Count 232 Mean Platelet Volume 9.4 Neutrophils (%) (Auto) 89.1 Lymphocytes (%) (Auto) 2.8 Monocytes (%) (Auto) 5.2 Eosinophils (%) (Auto) 2.5 Basophils (%) (Auto) 0.4 Neutrophils # (Auto) 5.1 Lymphocytes # (Auto) 0.2 Monocytes # (Auto) 0.3 Eosinophils # (Auto) 0.1 Basophils # (Auto) 0.0 CBC Comment DIFF FINAL Differential Comment Blood Urea Nitrogen 33 Creatinine 2.02 Random Glucose 66 Total Protein 7.4 Albumin 3.1 Calcium Level 8.0 Alkaline Phosphatase 102 Aspartate Amino Transf (AST/SGOT) 412 Alanine Aminotransferase (ALT/SGPT) 358 Total Bilirubin 0.7 Sodium Level 132 Potassium Level 5.2 Chloride Level 102 Carbon Dioxide Level 20.1 Anion Gap 10 Estimat Glomerular Filtration Rate 46 Lactic Acid Level 2.7 Date/Time Source Procedure Growth Status 04/16/17 06:15 Blood Peripheral Aerobic Blood Culture Pending Received 04/16/17 06:15 Blood Peripheral Anaerobic Blood Culture Pending Received Result Diagram: 04/16/17 0615 04/16/17 0615 Imaging Last Impressions Hand MRI 04/16/17 0000 Signed Impressions: Service Date/Time: Sunday, April 16, 2017 09:26 - CONCLUSION: 1. Small ganglion cysts bilaterally. 2. No fracture or bony abnormality. Joints are intact. Boom Guerrero MD Assessment and Plan Assessment and Plan Fever, acute renal failure, acute hepatitis, oral thrush LUE rash suspicious for zoster more than allergic reaction 2/2 clearly dermatomal rather than diffuse distribution Reaction to bactrim Sepsis suspected avoid bactrim chk HSV in L arm/back lesions r/o HIV including acute retroviral syndrome (pt agreed to testing, RN was present in the room) hepatitis profile monitor ceratinine start acyclovir po CXR add vancomycin and cefepime pending blood clx add bactrim to allergies Discussed Condition With Carmina Powell MD Apr 16, 2017 15:02
[2017-04-16 15:11] LABS: LACTIC ACID GHOST NOT REPORTABLE
--- NOTE | 2017-04-16 15:48 | RADRPT ---
EXAM DATE/TIME: 04/16/2017 15:19 [facility] COMPARISON: No previous studies available for comparison. INDICATIONS : Fever MEDICAL HISTORY : None. SURGICAL HISTORY : None. ENCOUNTER: Initial ACUITY: 1 day PAIN SCORE: 0/10 LOCATION: Bilateral chest FINDINGS: Patchy airspace disease in the left lower lung zone. Cardiomediastinal contours are within normal gomez its. Bony thorax is intact. CONCLUSION: 1. Patchy left lower lung zone airspace disease concerning for pneumonia given history of fever. Herbert Green MD on April 16, 2017 at 15:45 Board Certified Radiologist. This report was verified electronically.
[2017-04-16] MEDS: CEFEPIME INJ 2,000 MG in SODIUM CHLORIDE 0.9% INJ 100 ML IV SCH (16:25)
[2017-04-16 20:00] VITALS: BP 92/67; PULSE 121; RESP 18; TEMP 97.3; O2SAT 95
[2017-04-16] MEDS: ACYCLOVIR 200 MG CAP PO SCH ×2 (20:58→22:00)
[2017-04-17] VITALS (8 sets, daily range): BP systolic 89–108; BP diastolic 50–60; PULSE 89–126; RESP 18–25; TEMP 98.2–100.6; O2SAT 90–94
[2017-04-17 00:05] LABS: LACTIC ACID GHOST NOT REPORTABLE
[2017-04-17] MEDS ORDERED: SODIUM CHLOR 0.9% 1000 ML INJ 1,000 ML IV ONE (03:15)
[2017-04-17] MEDS: CEFEPIME INJ 2,000 MG in SODIUM CHLORIDE 0.9% INJ 100 ML IV SCH ×2 (04:00→17:12)
[2017-04-17 04:51] LABS: HEMATOCRIT 28.6 % (39.0-51.0); MEAN CELL VOLUME 90.7 FL (80.0-100.0); MEAN CORPUSCULAR HEMOGLOBIN 30.9 PG (27.0-34.0); MEAN CORPUSCULAR HGB CONC 34.1 % (32.0-36.0); PLATELET COUNT 165 TH/MM3 (150-450); RED BLOOD COUNT 3.15 MIL/MM3 (4.50-5.90); RED CELL DISTRIBUTION WIDTH 13.8 % (11.6-17.2); WHITE BLOOD COUNT 2.9 TH/MM3 (4.0-11.0)
[2017-04-17 04:55] LABS: HEMO FLAGS AUTO DIFF
[2017-04-17 05:12] LABS: BICARBONATE 21.6 MEQ/L (21.0-32.0); CALCIUM-PROTEIN CORRECTED 7.9 MG/DL (8.5-10.1); POTASSIUM 4.8 MEQ/L (3.5-5.1); TOTAL BILIRUBIN ADULT 0.3 MG/DL (0.2-1.0)
[2017-04-17 05:32] LABS: BANDS 2 % (0-6); NEUTROPHIL # MANUAL DIFF 2.8 TH/MM3 (1.8-7.7); POLYS (SEG NEUTROPHILS) 95 % (16-70); WBC DIFF SAMPLE 100
[2017-04-17 05:33] LABS: SCAN/DIFF FINAL DIFF MANUAL
[2017-04-17] MEDS: ACYCLOVIR 200 MG CAP PO SCH ×3 (06:10→22:00)
[2017-04-17] MEDS ORDERED: LACTATED RINGER'S 1000 ML INJ 1,000 ML IV ONE (06:30)
[2017-04-17] MEDS: LACTATED RINGER'S 1000 ML INJ 1,000 ML IV SCH (06:45)
[2017-04-17] MEDS: DOCUSATE SODIUM 50 MG/SENNA 8.6 MG TAB PO SCH ×2 (09:00→21:00)
[2017-04-17] MEDS: SODIUM CHLORIDE 0.9% FLUSH 10 ML FLUSH IV FLUSH SCH ×2 (09:00→21:00)
--- NOTE | 2017-04-17 09:18 | HHI.PR ---
Subjective Remarks This is a pleasant 36 y/o Male who came to ER with two day history of left hand pain and desquamation on the left shoulder and trunk, was seen in ER 04/01 due to left inner thigh abscess received Bactrim for 10 days, he returned on 03/28 where an I&D was performed, he was found two days ago with left inner He was given another dose of Bactrim and discharged to home with a prescription for Bactrim. but developed left arm and trunk blisters ruptured in the skin fell off. He has areas of open pink tissue where the skin has sloughed off. He complains of severe pain in his left hand and reports decreased strength in that hand. He also reports that his left inner thigh cellulitis is starting to worsen as the area is becoming thick and continues to drain small amounts of purulent material. Seen by ID specialist with diagnosis of Left upper extremity rash suspicious for Zoster more than allergic reaction Sepsis suspected, Avoid Bactrim, check HSV in Left arm and back lesions, Rule out HIV including acute retroviral syndrome, Hepatitis Profile, Started on Acyclovir by mouth, Added Vancomycin and Cefepime. Seen in his bedroom in the presence of nurse Mr. Prescott he showed his testicular area and is seen multiple lesions. Objective Vital Signs Date Time Temp Pulse Resp B/P (MAP) Pulse Ox O2 Delivery O2 Flow Rate FiO2 04/17/17 08:00 98.2 100 18 92/53 (66) 94 04/17/17 06:11 89 95/50 (65) 04/17/17 04:00 98.2 95 18 93 04/17/17 00:00 98.3 100 18 89/52 (64) 90 04/16/17 20:00 97.3 121 18 92/67 (75) 95 04/16/17 12:45 99.6 120 18 153/119 (130) 95 04/16/17 10:44 101.0 113 17 71/35 (47) 93 I/O 04/16/17 04/16/17 04/16/17 04/17/17 04/17/17 04/17/17 07:00 15:00 23:00 07:00 15:00 23:00 Intake Total 2000 ml 1975 ml 1000 ml Balance 2000 ml 1975 ml 1000 ml Intake IV Total 2000 ml 1975 ml 1000 ml # Voids 4 Result Diagram: 04/17/17 0421 04/17/17 0421 Imaging Last Impressions Hand MRI 04/16/17 0000 Signed Impressions: Service Date/Time: Sunday, April 16, 2017 09:26 - CONCLUSION: 1. Small ganglion cysts bilaterally. 2. No fracture or bony abnormality. Joints are intact. Boom Guerrero MD Chest X-Ray 04/16/17 0000 Signed Impressions: Service Date/Time: Sunday, April 16, 2017 15:19 - CONCLUSION: 1. Patchy left lower lung zone airspace disease concerning for pneumonia given history of fever. Herbert Green MD Procedures None Other Results Laboratory Tests Test 04/16/17 06:15 04/16/17 12:50 04/16/17 18:34 04/17/17 04:21 Neutrophils (%) (Auto) 89.1 % Lymphocytes (%) (Auto) 2.8 % Monocytes (%) (Auto) 5.2 % Eosinophils (%) (Auto) 2.5 % Basophils (%) (Auto) 0.4 % Neutrophils # (Auto) 5.1 TH/MM3 Lymphocytes # (Auto) 0.2 TH/MM3 Monocytes # (Auto) 0.3 TH/MM3 Eosinophils # (Auto) 0.1 TH/MM3 Basophils # (Auto) 0.0 TH/MM3 White Blood Count 2.9 TH/MM3 Red Blood Count 3.15 MIL/MM3 Hemoglobin 9.7 GM/DL Hematocrit 28.6 % Mean Corpuscular Volume 90.7 FL Mean Corpuscular Hemoglobin 30.9 PG Mean Corpuscular Hemoglobin Concent 34.1 % Red Cell Distribution Width 13.8 % Platelet Count 165 TH/MM3 Mean Platelet Volume 9.2 FL CBC Comment AUTO DIFF Differential Total Cells Counted 100 Neutrophils % (Manual) 95 % Band Neutrophils % 2 % Lymphocytes % 1 % Monocytes % 2 % Neutrophils # (Manual) 2.8 TH/MM3 Differential Comment FINAL DIFF MANUAL Blood Urea Nitrogen 27 MG/DL Creatinine 1.32 MG/DL Random Glucose 98 MG/DL Total Protein 5.7 GM/DL Albumin 2.4 GM/DL Calcium Level 7.2 MG/DL Alkaline Phosphatase 69 U/L Aspartate Amino Transf (AST/SGOT) 258 U/L Alanine Aminotransferase (ALT/SGPT) 254 U/L Total Bilirubin 0.3 MG/DL Sodium Level 145 MEQ/L Potassium Level 4.8 MEQ/L Chloride Level 117 MEQ/L Carbon Dioxide Level 21.6 MEQ/L Anion Gap 6 MEQ/L Estimat Glomerular Filtration Rate 75 ML/MIN Lactic Acid Level 1.3 mmol/L Protein Corrected Calcium 7.9 MG/DL Random Vancomycin Level 9.0 COMMENT Objective Remarks GENERAL: male lying in bed SKIN: 5 x 3 centimeter area of induration left inner thigh. No drainage. No fluctuance. Multiple areas of desquamation with a few intact bulla posterior aspect of left arm and shoulder and trunk. HEAD: Atraumatic. Normocephalic. No temporal or scalp tenderness. EYES: Pupils equal round and reactive. Extraocular motions intact. No scleral icterus. No injection or drainage. ENT: Nose without bleeding, purulent drainage or septal hematoma. Throat without erythema, tonsillar hypertrophy or exudate. Uvula midline. Airway patent. NECK: Trachea midline. No JVD or lymphadenopathy. Supple, nontender, no meningeal signs. CARDIOVASCULAR: Regular rate and rhythm without murmurs, gallops, or rubs. RESPIRATORY: Clear to auscultation. Breath sounds equal bilaterally. No wheezes , rales, or rhonchi. GASTROINTESTINAL: Abdomen soft, non-tender, nondistended. No hepato-splenomegaly , or palpable masses. No guarding. MUSCULOSKELETAL: Extremities without clubbing, cyanosis, or edema. No joint tenderness, effusion, or edema noted. No calf tenderness. NEUROLOGICAL: Awake and alert. Cranial nerves II through XII intact. Motor and sensory grossly within normal limits. Normal speech. Medications and IVs Current Medications Medications (Trade) Dose Ordered Sig/Denise Route Start Time Stop Time Status Last Admin (NS Flush) 2 ml UNSCH PRN IV FLUSH 04/16/17 08:30 (NS Flush) 2 ml BID IV FLUSH 04/16/17 09:00 (Tylenol) 650 mg Q4H PRN PO 04/16/17 08:30 (Zofran Inj) 4 mg Q6H PRN IVP 04/16/17 08:30 (Narcan Inj) 0.4 mg UNSCH PRN IV PUSH 04/16/17 08:30 (Taina-Colace) 1 tab BID PO 04/16/17 09:00 04/16/17 21:00 (Milk Of Magnesia Liq) 30 ml Q12H PRN PO 04/16/17 08:30 (Senokot) 17.2 mg Q12H PRN PO 04/16/17 08:30 (Dulcolax Supp) 10 mg DAILY PRN RECTAL 04/16/17 08:30 (Lactulose Liq) 30 ml DAILY PRN PO 04/16/17 08:30 Pharmacy Profile Note 0 ml @ 0 mls/hr UNSCH OTHER 04/16/17 09:15 (Percocet 5-325 Mg) 1 tab Q4H PRN PO 04/16/17 09:30 (Zovirax) 200 mg 5 TIMES A DAY PO 04/16/17 18:00 04/17/17 06:10 Pharmacy Profile Note 0 ml @ 0 mls/hr UNSCH OTHER 04/16/17 15:15 Cefepime HCl 2000 mg/Sodium Chloride 100 ml @ 200 mls/hr Q12H IV 04/16/17 16:00 04/17/17 04:00 Lactated Ringer's 1,000 ml @ 100 mls/hr Q10H IV 04/17/17 06:45 A/P Assessment and Plan 36-year-old male with left inner thigh MRSA cellulitis status post I&D presents with left hand pain/swelling and multiple areas of desquamation left shoulder/ trunk. 1. Left Upper exremity rash suspicious for Zoster. Seen by ID specialist with diagnosis of Left upper extremity rash suspicious for Zoster more than allergic reaction Sepsis suspected, Avoid Bactrim, check HSV in Left arm and back lesions, Rule out HIV including acute retroviral syndrome, Hepatitis Profile, Started on Acyclovir by mouth, Added Vancomycin and Cefepime. 2. Sepsis/Left inner thigh cellulitis Status post I&D on 03/28, wound cultures positive for MRSA Completed course of Bactrim Lactic acid pending Per patient report, area continues to drain small amounts of purulent material and is again increasing in size Vancomycin Blood cultures pending Read #1 3. Left hand swelling/pain No areas of erythema or induration, Hand MRI did not found acute infection. 4. LENORA Improving continue IV fluids. 5. Transaminitis AST/ALT 412/358 with no labs for comparison Hepatitis profile pending FEN Heart healthy diet NS at 75 cc/hr Electrolytes: monitor and replete prn SCDs Discharge Planning Once cleared by ID specialist. Amanuel Fox MD Apr 17, 2017 09:18
[2017-04-17] MEDS: VANCOMYCIN 1,000 MG/NS 250 ML IV SCH ×2 (12:24)
[2017-04-17 13:33] LABS: AUTOMATED NEUTROPHIL # 2.8 TH/MM3 (1.8-7.7); BASOPHIL % 0.2 % (0.0-2.0); EOSINOPHIL % 0.5 % (0.0-4.0); HEMATOCRIT 30.7 % (39.0-51.0); HEMO FLAGS DIFF FINAL; LYMPH % 16.1 % (9.0-44.0); LYMPHOCYTE # 0.6 TH/MM3 (1.0-4.8); MEAN CELL VOLUME 91.3 FL (80.0-100.0); MONO % 8.3 % (0.0-8.0); NEUT % 74.9 % (16.0-70.0); PLATELET COUNT 170 TH/MM3 (150-450); RED BLOOD COUNT 3.36 MIL/MM3 (4.50-5.90); RED CELL DISTRIBUTION WIDTH 13.9 % (11.6-17.2); WHITE BLOOD COUNT 3.8 TH/MM3 (4.0-11.0)
[2017-04-17] MEDS: guaiFENesin E.R. 600 MG TAB PO SCH (21:00)
[2017-04-17] MEDS: RESP: ALBUTEROL 2.5 MG/IPRATROPIUM 0.5 MG NEB (SCH) NEB (23:50)
[2017-04-18] VITALS (7 sets, daily range): BP systolic 93–123; BP diastolic 44–78; PULSE 85–108; RESP 16–18; TEMP 98–99; O2SAT 92–97
[2017-04-18] MEDS: LACTATED RINGER'S 1000 ML INJ 1,000 ML IV SCH ×3 (02:45→22:45)
[2017-04-18] MEDS: RESP: ALBUTEROL 2.5 MG/IPRATROPIUM 0.5 MG NEB (SCH) NEB ×4 (03:52→20:52)
[2017-04-18] MEDS: ACYCLOVIR 200 MG CAP PO SCH ×5 (06:24→21:45)
[2017-04-18] MEDS: CEFEPIME INJ 2,000 MG in SODIUM CHLORIDE 0.9% INJ 100 ML IV SCH ×2 (06:24→16:00)
[2017-04-18 07:34] LABS: AUTOMATED NEUTROPHIL # 2.6 TH/MM3 (1.8-7.7); BASOPHIL % 0.2 % (0.0-2.0); EOSINOPHIL % 1.2 % (0.0-4.0); HEMATOCRIT 33.3 % (39.0-51.0); HEMO FLAGS DIFF FINAL; LYMPH % 18.8 % (9.0-44.0); LYMPHOCYTE # 0.7 TH/MM3 (1.0-4.8); MEAN CELL VOLUME 90.9 FL (80.0-100.0); MEAN CORPUSCULAR HEMOGLOBIN 30.6 PG (27.0-34.0); MEAN CORPUSCULAR HGB CONC 33.7 % (32.0-36.0); MONO % 12.9 % (0.0-8.0); NEUT % 66.9 % (16.0-70.0); PLATELET COUNT 136 TH/MM3 (150-450); RED BLOOD COUNT 3.67 MIL/MM3 (4.50-5.90); RED CELL DISTRIBUTION WIDTH 13.4 % (11.6-17.2)
[2017-04-18 08:09] LABS: BICARBONATE 21.6 MEQ/L (21.0-32.0); POTASSIUM 4.4 MEQ/L (3.5-5.1)
[2017-04-18] MEDS: guaiFENesin E.R. 600 MG TAB PO SCH ×2 (08:35→21:45)
[2017-04-18] MEDS: DOCUSATE SODIUM 50 MG/SENNA 8.6 MG TAB PO SCH ×2 (08:36→21:45)
[2017-04-18] MEDS: SODIUM CHLORIDE 0.9% FLUSH 10 ML FLUSH IV FLUSH SCH ×2 (09:00→21:00)
--- NOTE | 2017-04-18 10:16 | HHI.PR ---
Subjective Remarks f/u; rash/ fever in no acute distress. T max; 100.6. Objective Vitals Vital Signs Date Time Temp Pulse Resp B/P (MAP) Pulse Ox O2 Delivery O2 Flow Rate FiO2 04/18/17 08:00 98.5 97 17 111/66 (81) 94 04/18/17 04:00 98.0 102 18 106/57 (73) 97 04/18/17 00:00 98.1 108 18 93/44 (60) 92 04/17/17 23:56 93 Nasal Cannula 3.00 04/17/17 20:00 99.6 116 24 108/60 (76) 91 04/17/17 16:00 100.6 126 25 103/51 (68) 93 04/17/17 11:48 98.5 107 18 92/55 (67) 93 I/O 04/17/17 04/17/17 04/17/17 04/18/17 04/18/17 04/18/17 07:00 15:00 23:00 07:00 15:00 23:00 Intake Total 1975 ml 1250 ml 350 ml Balance 1975 ml 1250 ml 350 ml Intake IV Total 1975 ml 1250 ml 350 ml # Voids 4 6 # Bowel Movements 1 Result Diagram: 04/18/17 0721 04/18/17 0721 Imaging Last Impressions Hand MRI 04/16/17 0000 Signed Impressions: Service Date/Time: Sunday, April 16, 2017 09:26 - CONCLUSION: 1. Small ganglion cysts bilaterally. 2. No fracture or bony abnormality. Joints are intact. Boom Guerrero MD Chest X-Ray 04/16/17 0000 Signed Impressions: Service Date/Time: Sunday, April 16, 2017 15:19 - CONCLUSION: 1. Patchy left lower lung zone airspace disease concerning for pneumonia given history of fever. Herbert Green MD Objective Remarks GENERAL: This is a well-nourished, well-developed patient, in no apparent distress. CARDIOVASCULAR: Regular rate and regular rhythm without murmurs, gallops, or rubs. RESPIRATORY: Clear to auscultation. Breath sounds equal bilaterally. No wheezes , rales, or rhonchi. GASTROINTESTINAL: Abdomen soft, non-tender, nondistended. Normal, active bowel sounds MUSCULOSKELETAL: Extremities without clubbing, cyanosis, or edema. NEURO: Alert & Oriented x4 to person, place, time, situation. Moves all ext x4 skin; rash noted on the left shoulder Medications and IVs Current Medications Bacitracin (Baciguent Oint) 1 applic ONCE ONCE TOPICAL Last administered on 07:17; Start 04/16/17 at 06:00; Stop 04/16/17 at 06:01; Status DC Sodium Chloride 1,000 ml @ 999 mls/hr BOLUS ONCE IV Last administered on 04/16 06:58; Start 04/16/17 at 07:00; Stop 04/16/17 at 08:00; Status DC Sodium Chloride 1,000 ml @ 999 mls/hr BOLUS ONCE IV Last administered on 04/16 06:58; Start 04/16/17 at 07:00; Stop 04/16/17 at 08:00; Status DC Diphenhydramine HCl (Benadryl Inj) 12.5 mg ONCE ONCE IV PUSH Last administered on 04/16/17 07:59; Start 04/16/17 at 07:30; Stop 04/16/17 at 07:31 ; Status DC Dextrose/Sodium Chloride 1,000 ml @ 100 mls/hr Q10H IV Last administered on 07:59; Start 04/16/17 at 07:30; Stop 04/16/17 at 08:49; Status DC Methylprednisolone Sodium Succinate (SoluMEDROL INJ) 125 mg ONCE ONCE IV PUSH Last administered on 04/16/17 07:59; Start 04/16/17 at 07:45; Stop 04/16/17 at 07:46; Status DC Sodium Chloride 1,000 ml @ 125 mls/hr Q8H IV Last administered on 04/16/17 22 :20; Start 04/16/17 at 09:00; Stop 04/17/17 at 06:44; Status DC Sodium Chloride (NS Flush) 2 ml UNSCH PRN IV FLUSH FLUSH AFTER USING IV ACCESS ; Start 04/16/17 at 08:30 Sodium Chloride (NS Flush) 2 ml BID IV FLUSH Last administered on 04/17/17 21: 00; Start 04/16/17 at 09:00 Acetaminophen (Tylenol) 650 mg Q4H PRN PO TEMP > 100.4; Start 04/16/17 at 08:30 Ondansetron HCl (Zofran Inj) 4 mg Q6H PRN IVP NAUSEA OR VOMITING; Start at 08:30 Naloxone HCl (Narcan Inj) 0.4 mg UNSCH PRN IV PUSH SEE LABEL COMMENTS; Start 04/16/17 at 08:30 Senna/Docusate Sodium (Taina-Colace) 1 tab BID PO Last administered on 08:36; Start 04/16/17 at 09:00 Magnesium Hydroxide (Milk Of Magnesia Liq) 30 ml Q12H PRN PO Mild constipation ; Start 04/16/17 at 08:30 Sennosides (Senokot) 17.2 mg Q12H PRN PO Moderate constipation; Start 04/16/17 at 08:30 Bisacodyl (Dulcolax Supp) 10 mg DAILY PRN RECTAL SEVERE CONSITIPATION; Start 04/16/17 at 08:30 Lactulose (Lactulose Liq) 30 ml DAILY PRN PO SEVERE CONSITIPATION; Start at 08:30 Pharmacy Profile Note 0 ml @ 0 mls/hr UNSCH OTHER ; Start 04/16/17 at 09:15; Stop 04/17/17 at 11:48; Status DC Vancomycin HCl 1250 mg/Sodium Chloride 262.5 ml @ 250 mls/hr ONCE ONCE IV Last administered on 04/16/17 13:50; Start 04/16/17 at 12:00; Stop 04/16/17 at 13:02; Status DC Oxycodone/ Acetaminophen (Percocet 5-325 Mg) 1 tab Q4H PRN PO pain 6-10; Start 04/16/17 at 09:30 Gadodiamide (Omniscan Pf Inj) 14 ml STK-MED ONCE IVCONTRAST Last administered on 04/16/17 09:48; Start 04/16/17 at 09:48; Stop 04/16/17 at 09:49; Status DC Sodium Chloride 1,000 ml @ 999 mls/hr BOLUS ONCE IV Last administered on 04/16 11:00; Start 04/16/17 at 11:00; Stop 04/16/17 at 12:00; Status DC Acyclovir (Zovirax) 200 mg 5 TIMES A DAY PO Last administered on 04/18/17 06: 24; Start 04/16/17 at 18:00 Pharmacy Profile Note 0 ml @ 0 mls/hr UNSCH OTHER ; Start 04/16/17 at 15:15 Cefepime HCl 2000 mg/Sodium Chloride 100 ml @ 200 mls/hr Q12H IV Last administered on 04/18/17 06:24; Start 04/16/17 at 16:00 Sodium Chloride 1,000 ml @ 999 mls/hr BOLUS ONCE IV ; Start 04/16/17 at 20:00 ; Stop 04/16/17 at 21:00; Status DC Sodium Chloride 1,000 ml @ 999 mls/hr BOLUS ONCE IV Last administered on 04/17 03:15; Start 04/17/17 at 03:15; Stop 04/17/17 at 04:15; Status DC Lactated Ringer's 1,000 ml @ 999 mls/hr BOLUS ONCE IV Last administered on 06:30; Start 04/17/17 at 06:30; Stop 04/17/17 at 07:30; Status DC Lactated Ringer's 1,000 ml @ 100 mls/hr Q10H IV ; Start 04/17/17 at 06:45 Vancomycin HCl 1000 mg/Sodium Chloride 250 ml @ 250 mls/hr Q12H IV Last administered on 04/18/17 00:00; Start 04/17/17 at 12:00 Miscellaneous Information SPECIFIC LAB TO BE ... ONCE ONCE .XX ; Start 04/18 at 23:45; Stop 04/18/17 at 23:46 Albuterol/ Ipratropium (Duoneb Neb) 1 ampule Q4HR NEB NEB Last administered on 04/18/17 07:39; Start 04/17/17 at 20:00 Guaifenesin (Mucinex Er) 600 mg BID PO Last administered on 04/18/17 08:35; Start 04/17/17 at 21:00 A/P Assessment and Plan 1. Left Upper exremity rash . Seen by ID with diagnosis of Left upper extremity rash suspicious for Zoster more than allergic reaction Sepsis suspected, Avoid Bactrim, check HSV in Left arm and back lesions. Acyclovir by mouth, Added Vancomycin and Cefepime. HIV screening negative. 2. Sepsis/Left inner thigh cellulitis Status post I&D on 03/28, wound cultures positive for MRSA Completed course of Bactrim continue Vancomycin. blood cultures negative so far. ID following. 3. Left hand swelling/pain No areas of erythema or induration, Hand MRI did not found acute infection. 4. LENORA Improving continue IV fluids. 5. Transaminitis Hepatitis profile pending. LFT's in am. Yanick Aguero MD Apr 18, 2017 10:16
[2017-04-18] MEDS: VANCOMYCIN 1,000 MG/NS 250 ML IV SCH ×4 (14:00)
--- NOTE | 2017-04-18 14:05 | HHI.IDPN ---
Subjective Subjective Remarks co pain in "private area" hypoxia, on NC O2 afebrile overall thinks he feels [id number] ERIK negative, VL P Antibiotics cefepime vanco\\ acyclovit Allergies: Coded Allergies: No Known Allergies (Unverified , 04/16/17) Objective . Vital Signs Date Time Temp Pulse Resp B/P (MAP) Pulse Ox O2 Delivery O2 Flow Rate FiO2 04/18/17 12:00 98.6 96 17 107/59 (75) 94 04/18/17 08:00 98.5 97 17 111/66 (81) 94 04/18/17 04:00 98.0 102 18 106/57 (73) 97 04/18/17 00:00 98.1 108 18 93/44 (60) 92 04/17/17 23:56 93 Nasal Cannula 3.00 04/17/17 20:00 99.6 116 24 108/60 (76) 91 04/17/17 16:00 100.6 126 25 103/51 (68) 93 04/18/17 04/18/17 04/19/17 15:00 23:00 07:00 # Voids 6 # Bowel Movements 1 . Laboratory Tests Test 04/17/17 04:21 04/17/17 13:10 04/18/17 07:21 White Blood Count 2.9 TH/MM3 3.8 TH/MM3 4.0 TH/MM3 Red Blood Count 3.15 MIL/MM3 3.36 MIL/MM3 3.67 MIL/MM3 Hemoglobin 9.7 GM/DL 10.4 GM/DL 11.2 GM/DL Hematocrit 28.6 % 30.7 % 33.3 % Mean Corpuscular Volume 90.7 FL 91.3 FL 90.9 FL Mean Corpuscular Hemoglobin 30.9 PG 31.0 PG 30.6 PG Mean Corpuscular Hemoglobin Concent 34.1 % 34.0 % 33.7 % Red Cell Distribution Width 13.8 % 13.9 % 13.4 % Platelet Count 165 TH/MM3 170 TH/MM3 136 TH/MM3 Mean Platelet Volume 9.2 FL 9.3 FL 9.3 FL CBC Comment AUTO DIFF DIFF FINAL DIFF FINAL Differential Total Cells Counted 100 Neutrophils % (Manual) 95 % Band Neutrophils % 2 % Lymphocytes % 1 % Monocytes % 2 % Neutrophils # (Manual) 2.8 TH/MM3 Differential Comment FINAL DIFF MANUAL Neutrophils (%) (Auto) 74.9 % 66.9 % Lymphocytes (%) (Auto) 16.1 % 18.8 % Monocytes (%) (Auto) 8.3 % 12.9 % Eosinophils (%) (Auto) 0.5 % 1.2 % Basophils (%) (Auto) 0.2 % 0.2 % Neutrophils # (Auto) 2.8 TH/MM3 2.6 TH/MM3 Lymphocytes # (Auto) 0.6 TH/MM3 0.7 TH/MM3 Monocytes # (Auto) 0.3 TH/MM3 0.5 TH/MM3 Eosinophils # (Auto) 0.0 TH/MM3 0.0 TH/MM3 Basophils # (Auto) 0.0 TH/MM3 0.0 TH/MM3 Laboratory Tests Test 04/16/17 17:33 04/16/17 21:57 04/17/17 04:21 04/18/17 07:21 Lactic Acid Level 3.4 mmol/L 2.7 mmol/L 1.3 mmol/L Blood Urea Nitrogen 27 MG/DL 19 MG/DL Creatinine 1.32 MG/DL 1.30 MG/DL Random Glucose 98 MG/DL 73 MG/DL Total Protein 5.7 GM/DL Albumin 2.4 GM/DL Calcium Level 7.2 MG/DL 8.0 MG/DL Alkaline Phosphatase 69 U/L Aspartate Amino Transf (AST/SGOT) 258 U/L Alanine Aminotransferase (ALT/SGPT) 254 U/L Total Bilirubin 0.3 MG/DL Sodium Level 145 MEQ/L 140 MEQ/L Potassium Level 4.8 MEQ/L 4.4 MEQ/L Chloride Level 117 MEQ/L 110 MEQ/L Carbon Dioxide Level 21.6 MEQ/L 21.6 MEQ/L Anion Gap 6 MEQ/L 8 MEQ/L Estimat Glomerular Filtration Rate 75 ML/MIN 77 ML/MIN Protein Corrected Calcium 7.9 MG/DL Magnesium Level 2.4 MG/DL Phosphorus Level 2.5 MG/DL Microbiology Date/Time Source Procedure Growth Status 04/16/17 06:15 Blood Peripheral Aerobic Blood Culture - Preliminary NO GROWTH IN 2 DAYS Resulted 04/16/17 06:15 Blood Peripheral Anaerobic Blood Culture - Preliminary NO GROWTH IN 2 DAYS Resulted 04/16/17 06:15 Blood Peripheral Aerobic Blood Culture - Preliminary NO GROWTH IN 2 DAYS Resulted 04/16/17 06:15 Blood Peripheral Anaerobic Blood Culture - Preliminary NO GROWTH IN 2 DAYS Resulted Imaging Last Impressions Hand MRI 04/16/17 0000 Signed Impressions: Service Date/Time: Sunday, April 16, 2017 09:26 - CONCLUSION: 1. Small ganglion cysts bilaterally. 2. No fracture or bony abnormality. Joints are intact. Boom Guerrero MD Chest X-Ray 04/16/17 0000 Signed Impressions: Service Date/Time: Sunday, April 16, 2017 15:19 - CONCLUSION: 1. Patchy left lower lung zone airspace disease concerning for pneumonia given history of fever. Herbert Green MD Physical Exam CONSTITUTIONAL/GENERAL: This is an adequately nourished patient, in no apparent distress. TUBES/LINES/DRAINS: SKIN: Skin appears to be somewhat erythematous but w/o rash elements Diffuse erythema noted with small soft bullous lesions with a lot of them unroofed and denuded skin is noted on the L arm and L scapula area - they are drying out L thigh lesion - apears healed HEAD: Atraumatic. Normocephalic. EYES: Pupils equal and round and reactive. Extraocular motions intact. No scleral icterus. No injection or drainage. Fundi not examined. ENT: oral mucosa much better NECK: Trachea midline. Supple, nontender. No palpable thyroid enlargement or nodularity. CARDIOVASCULAR: Regular rate and rhythm without murmurs, gallops, or rubs. No JVD. Peripheral pulses symmetric. RESPIRATORY/CHEST: Symmetric, unlabored respirations. Clear to auscultation. Breath sounds equal bilaterally. No wheezes, rales, or rhonchi. GASTROINTESTINAL: Abdomen soft, non-tender, nondistended. No hepato-splenomegaly , or palpable masses. No guarding. Bowel sounds present. GENITOURINARY: Without palpable bladder distension. Scrotum with healing shallow tender ulcerations MUSCULOSKELETAL: Extremities without clubbing, cyanosis, + 2+ edema involving LE . No joint tenderness or effusion noted. No calf tenderness. No mottling or clubbing. LYMPHATICS: No palpable cervical or supraclavicular adenopathy. NEUROLOGICAL: Awake and alert. Motor and sensory grossly within normal limits. Follows commands. clear speech Moves all extremities. PSYCHIATRIC: No obvious anxiety/depression. no apparent hallucinations or other psychotic thought process. Assessment & Plan Remarks Fever, acute renal failure, acute hepatitis, oral thrush - hepatitis profile negative LUE rash suspicious for zoster more than allergic reaction 2/2 clearly dermatomal rather than diffuse distribution Reaction to bactrim Sepsis suspected avoid bactrim fu HSV in L arm/back lesions P r/o HIV including acute retroviral syndrome (pt agreed to testing, RN was present in the room) - fu HIV VL monitor creatinine cont acyclovir po cont vancomycin and cefepime pending blood clx add azithro add bactrim to allergies Carmina Russ MD Apr 18, 2017 14:05
[2017-04-18] MEDS: AZITHROMYCIN INJ 500 MG in SODIUM CHLOR 0.9% 250 ML INJ 250 ML IV SCH (17:00)
[2017-04-18 23:08] LABS: ALT (GPT) 161 U/L (12-78)
[2017-04-18 23:10] LABS: ALKALINE PHOSPHATASE 73 U/L (45-117); TOTAL BILIRUBIN ADULT 0.5 MG/DL (0.2-1.0); VANCOMYCIN TROUGH 17.7 MCG/ML (5.0-10.0)
[2017-04-18 23:11] LABS: ANION GAP 10 MEQ/L (5-15); AST (GOT) 116 U/L (15-37); BICARBONATE 21.7 MEQ/L (21.0-32.0); BLOOD UREA NITROGEN 18 MG/DL (7-18); CHLORIDE 108 MEQ/L (98-107); GLOMERULAR FILTRATION RATE 81 ML/MIN (>89); POTASSIUM 3.9 MEQ/L (3.5-5.1); SODIUM (NA) 140 MEQ/L (136-145)
[2017-04-18] MEDS ORDERED: PHARMACY ORDERED LAB ONE (23:45)
[2017-04-19] VITALS (7 sets, daily range): BP systolic 117–140; BP diastolic 63–83; PULSE 59–101; RESP 16–20; TEMP 98–99.1; O2SAT 92–97
[2017-04-19] MEDS: VANCOMYCIN 1,000 MG/NS 250 ML IV SCH ×6 (00:21→23:34)
[2017-04-19] MEDS: RESP: ALBUTEROL 2.5 MG/IPRATROPIUM 0.5 MG NEB (SCH) NEB ×6 (01:27→20:00)
[2017-04-19] MEDS: CEFEPIME INJ 2,000 MG in SODIUM CHLORIDE 0.9% INJ 100 ML IV SCH ×2 (03:10→16:34)
[2017-04-19] MEDS: ACYCLOVIR 200 MG CAP PO SCH ×5 (05:36→22:16)
--- NOTE | 2017-04-19 07:21 | MB ---
cc: [facility]AC[facility]IL[facility] DATE OF CONSULTATION 04/18/2017 REASON FOR CONSULTATION Pneumonia. HISTORY OF PRESENT ILLNESS Mr. Soni is a 36-year-old male who was admitted with a febrile illness the day prior to his hospitalization. He had a history of a left thigh abscess for which he was placed on Bactrim. He developed rash on his back as well as left upper extremity followed by Infectious Disease for same, etiology of which is not clear. Herpes zoster infection is suspect the patient's chest x-ray as well reveals evidence of a left lower lung infiltrate. He does require oxygen 2 liters via nasal cannula to maintain adequate oxygenation. He was noted as well to have significant lymphodynia. PAST HISTORY No diabetes. No hypertension. No heart disease. No previous surgeries. ALLERGIES None known to medication. FAMILY HISTORY Noncontributory. REVIEW OF SYSTEMS A 12-point review of systems as per HPI and Past History, otherwise negative. SOCIAL HISTORY Smokes on occasion. Drinks occasionally. Has not used drugs. CURRENT MEDICATIONS 1. Zithromax. 2. Vancomycin. 3. Albuterol. 4. Ipratropium nebulization. 5. Acyclovir. 6. Cefepime. PHYSICAL EXAMINATION GENERAL: On exam the patient is alert. VITAL SIGNS: Temperature 99, pulse 100, respirations 17, blood pressure 118/80, O2 saturation 93% on 2 liters oxygen nasal cannula. HEENT: Exam unremarkable. Eyes without icterus. NECK: Without adenopathy or thyroid enlargement. CHEST: A few rhonchi left base. CARDIAC EXAM: Benign. S1, S2 audible. No murmur or rub. ABDOMEN: Lax. Audible bowel sounds. EXTREMITIES: No clubbing, cyanosis or edema. LABORATORY DATA Sodium 140, potassium 4.4, BUN 8, creatinine 19. White count 4000, hemoglobin 11, hematocrit 33, platelets 136,000. IMPRESSION 1. Left lower lung infiltrate, pneumonia suspect. 2. Acute renal failure. 3. Acute hepatitis. 4. Oral candidiasis. 5. Left upper extremity rash as well as on the back suspicious for zoster infection or reaction to Bactrim. PLAN 1. The patient to continue antibiotic therapy followed by Infectious Disease for same. 2. Follow up chest x-ray. 3. The patient seems to be clinically improved. We will follow his lung infiltrate. If it worsens, further evaluation will be undertaken as needed. I do thank you for asking me to partake in Mr. Soni's care. Sincerely, MD RACHAEL Patel/SHALA /6:32 PM /7:03 AM
[2017-04-19] MEDS: LACTATED RINGER'S 1000 ML INJ 1,000 ML IV SCH ×2 (07:26→16:52)
[2017-04-19] MEDS: SODIUM CHLORIDE 0.9% FLUSH 10 ML FLUSH IV FLUSH SCH ×2 (09:00→21:00)
--- NOTE | 2017-04-19 09:15 | HHI.PR ---
Subjective Remarks ALERT NO SOB Objective Vital Signs Date Time Temp Pulse Resp B/P (MAP) Pulse Ox O2 Delivery O2 Flow Rate FiO2 04/19/17 08:39 98.5 76 20 122/68 (86) 94 04/19/17 08:17 96 04/19/17 03:09 99.1 88 16 121/76 (91) 97 04/19/17 00:15 98.2 98 16 140/63 (88) 95 04/18/17 20:30 98.2 85 16 123/68 (86) 95 04/18/17 16:27 93 04/18/17 16:00 99.0 106 17 118/78 (91) 92 04/18/17 12:00 98.6 96 17 107/59 (75) 94 I/O 04/18/17 04/18/17 04/18/17 04/19/17 04/19/17 04/19/17 07:00 15:00 23:00 07:00 15:00 23:00 Intake Total 350 ml 1040 ml 350 ml Output Total 1850 ml 320 ml Balance 350 ml -810 ml 30 ml Intake Oral 240 ml IV Total 350 ml 800 ml 350 ml Output Urine Total 1850 ml 320 ml # Voids 6 1 # Bowel Movements 1 Result Diagram: 04/18/17 0721 04/18/17 2233 Procedures None Objective Remarks GENERAL: SKIN: Warm and dry. HEAD: Atraumatic. Normocephalic. EYES: Pupils equal and round. No scleral icterus. No injection or drainage. ENT: No nasal bleeding or discharge. Mucous membranes pink and moist. NECK: Trachea midline. No JVD. CARDIOVASCULAR: Regular rate and rhythm. RESPIRATORY: No accessory muscle use. Clear to auscultation. Breath sounds equal bilaterally. GASTROINTESTINAL: Abdomen soft, non-tender, nondistended. Hepatic and splenic margins not palpable. MUSCULOSKELETAL: Extremities without clubbing, cyanosis, or edema. No obvious deformities. NEUROLOGICAL: Awake and alert. No obvious cranial nerve deficits. Motor grossly within normal limits. Five out of 5 muscle strength in the arms and legs. Normal speech. PSYCHIATRIC: Appropriate mood and affect; insight and judgment normal. Assessment and Plan Assessment and Plan LLL INFILTRATE SCOTTY EXTREMETY RASH PLAN F/U CXY Chencho Paiz MD Apr 19, 2017 09:15
[2017-04-19] MEDS: guaiFENesin E.R. 600 MG TAB PO SCH ×2 (09:24→22:16)
[2017-04-19] MEDS: DOCUSATE SODIUM 50 MG/SENNA 8.6 MG TAB PO SCH ×2 (09:25→22:17)
--- NOTE | 2017-04-19 09:58 | HHI.PR ---
Subjective Remarks in no acute distress. remains afebrile. Objective Vitals Vital Signs Date Time Temp Pulse Resp B/P (MAP) Pulse Ox O2 Delivery O2 Flow Rate FiO2 04/19/17 08:39 98.5 76 20 122/68 (86) 94 04/19/17 08:17 96 04/19/17 03:09 99.1 88 16 121/76 (91) 97 04/19/17 00:15 98.2 98 16 140/63 (88) 95 04/18/17 20:30 98.2 85 16 123/68 (86) 95 04/18/17 16:27 93 04/18/17 16:00 99.0 106 17 118/78 (91) 92 04/18/17 12:00 98.6 96 17 107/59 (75) 94 I/O 04/18/17 04/18/17 04/18/17 04/19/17 04/19/17 04/19/17 07:00 15:00 23:00 07:00 15:00 23:00 Intake Total 350 ml 1040 ml 350 ml Output Total 1850 ml 320 ml Balance 350 ml -810 ml 30 ml Intake Oral 240 ml IV Total 350 ml 800 ml 350 ml Output Urine Total 1850 ml 320 ml # Voids 6 1 # Bowel Movements 1 Result Diagram: 04/18/17 0721 04/18/17 2233 Imaging Last Impressions Hand MRI 04/16/17 0000 Signed Impressions: Service Date/Time: Sunday, April 16, 2017 09:26 - CONCLUSION: 1. Small ganglion cysts bilaterally. 2. No fracture or bony abnormality. Joints are intact. Boom Guerrero MD Chest X-Ray 04/16/17 0000 Signed Impressions: Service Date/Time: Sunday, April 16, 2017 15:19 - CONCLUSION: 1. Patchy left lower lung zone airspace disease concerning for pneumonia given history of fever. Herbert Green MD Objective Remarks GENERAL: This is a well-nourished, well-developed patient, in no apparent distress. CARDIOVASCULAR: Regular rate and regular rhythm without murmurs, gallops, or rubs. RESPIRATORY: Clear to auscultation. Breath sounds equal bilaterally. No wheezes , rales, or rhonchi. GASTROINTESTINAL: Abdomen soft, non-tender, nondistended. Normal, active bowel sounds MUSCULOSKELETAL: Extremities without clubbing, cyanosis, or edema. NEURO: Alert & Oriented x4 to person, place, time, situation. Moves all ext x4 skin; rash noted on the left shoulder Medications and IVs Current Medications Bacitracin (Baciguent Oint) 1 applic ONCE ONCE TOPICAL Last administered on 07:17; Start 04/16/17 at 06:00; Stop 04/16/17 at 06:01; Status DC Sodium Chloride 1,000 ml @ 999 mls/hr BOLUS ONCE IV Last administered on 04/16 06:58; Start 04/16/17 at 07:00; Stop 04/16/17 at 08:00; Status DC Sodium Chloride 1,000 ml @ 999 mls/hr BOLUS ONCE IV Last administered on 04/16 06:58; Start 04/16/17 at 07:00; Stop 04/16/17 at 08:00; Status DC Diphenhydramine HCl (Benadryl Inj) 12.5 mg ONCE ONCE IV PUSH Last administered on 04/16/17 07:59; Start 04/16/17 at 07:30; Stop 04/16/17 at 07:31 ; Status DC Dextrose/Sodium Chloride 1,000 ml @ 100 mls/hr Q10H IV Last administered on 07:59; Start 04/16/17 at 07:30; Stop 04/16/17 at 08:49; Status DC Methylprednisolone Sodium Succinate (SoluMEDROL INJ) 125 mg ONCE ONCE IV PUSH Last administered on 04/16/17 07:59; Start 04/16/17 at 07:45; Stop 04/16/17 at 07:46; Status DC Sodium Chloride 1,000 ml @ 125 mls/hr Q8H IV Last administered on 04/16/17 22 :20; Start 04/16/17 at 09:00; Stop 04/17/17 at 06:44; Status DC Sodium Chloride (NS Flush) 2 ml UNSCH PRN IV FLUSH FLUSH AFTER USING IV ACCESS ; Start 04/16/17 at 08:30 Sodium Chloride (NS Flush) 2 ml BID IV FLUSH Last administered on 04/18/17 21: 00; Start 04/16/17 at 09:00 Acetaminophen (Tylenol) 650 mg Q4H PRN PO TEMP > 100.4; Start 04/16/17 at 08:30 Ondansetron HCl (Zofran Inj) 4 mg Q6H PRN IVP NAUSEA OR VOMITING; Start at 08:30 Naloxone HCl (Narcan Inj) 0.4 mg UNSCH PRN IV PUSH SEE LABEL COMMENTS; Start 04/16/17 at 08:30 Senna/Docusate Sodium (Taina-Colace) 1 tab BID PO Last administered on 09:25; Start 04/16/17 at 09:00 Magnesium Hydroxide (Milk Of Magnesia Liq) 30 ml Q12H PRN PO Mild constipation ; Start 04/16/17 at 08:30 Sennosides (Senokot) 17.2 mg Q12H PRN PO Moderate constipation; Start 04/16/17 at 08:30 Bisacodyl (Dulcolax Supp) 10 mg DAILY PRN RECTAL SEVERE CONSITIPATION; Start 04/16/17 at 08:30 Lactulose (Lactulose Liq) 30 ml DAILY PRN PO SEVERE CONSITIPATION; Start at 08:30 Pharmacy Profile Note 0 ml @ 0 mls/hr UNSCH OTHER ; Start 04/16/17 at 09:15; Stop 04/17/17 at 11:48; Status DC Vancomycin HCl 1250 mg/Sodium Chloride 262.5 ml @ 250 mls/hr ONCE ONCE IV Last administered on 04/16/17 13:50; Start 04/16/17 at 12:00; Stop 04/16/17 at 13:02; Status DC Oxycodone/ Acetaminophen (Percocet 5-325 Mg) 1 tab Q4H PRN PO pain 6-10; Start 04/16/17 at 09:30 Gadodiamide (Omniscan Pf Inj) 14 ml STK-MED ONCE IVCONTRAST Last administered on 04/16/17 09:48; Start 04/16/17 at 09:48; Stop 04/16/17 at 09:49; Status DC Sodium Chloride 1,000 ml @ 999 mls/hr BOLUS ONCE IV Last administered on 04/16 11:00; Start 04/16/17 at 11:00; Stop 04/16/17 at 12:00; Status DC Acyclovir (Zovirax) 200 mg 5 TIMES A DAY PO Last administered on 04/19/17 09: 24; Start 04/16/17 at 18:00 Pharmacy Profile Note 0 ml @ 0 mls/hr UNSCH OTHER ; Start 04/16/17 at 15:15 Cefepime HCl 2000 mg/Sodium Chloride 100 ml @ 200 mls/hr Q12H IV Last administered on 04/19/17 03:10; Start 04/16/17 at 16:00 Sodium Chloride 1,000 ml @ 999 mls/hr BOLUS ONCE IV ; Start 04/16/17 at 20:00 ; Stop 04/16/17 at 21:00; Status DC Sodium Chloride 1,000 ml @ 999 mls/hr BOLUS ONCE IV Last administered on 04/17 03:15; Start 04/17/17 at 03:15; Stop 04/17/17 at 04:15; Status DC Lactated Ringer's 1,000 ml @ 999 mls/hr BOLUS ONCE IV Last administered on 06:30; Start 04/17/17 at 06:30; Stop 04/17/17 at 07:30; Status DC Lactated Ringer's 1,000 ml @ 100 mls/hr Q10H IV Last administered on 07:26; Start 04/17/17 at 06:45 Vancomycin HCl 1000 mg/Sodium Chloride 250 ml @ 250 mls/hr Q12H IV Last administered on 04/19/17 00:21; Start 04/17/17 at 12:00 Miscellaneous Information SPECIFIC LAB TO BE ... ONCE ONCE .XX Last administered on 04/18/17 23:45; Start 04/18/17 at 23:45; Stop 04/18/17 at 23:46 ; Status DC Albuterol/ Ipratropium (Duoneb Neb) 1 ampule Q4HR NEB NEB Last administered on 04/19/17 08:13; Start 04/17/17 at 20:00 Guaifenesin (Mucinex Er) 600 mg BID PO Last administered on 04/19/17 09:24; Start 04/17/17 at 21:00 Azithromycin 500 mg/Sodium Chloride 250 ml @ 250 mls/hr Q24H IV Last administered on 12/4/17at 17:00; Start 04/18/17 at 17:00 A/P Assessment and Plan 1. Left Upper exremity rash . Seen by ID with diagnosis of Left upper extremity rash suspicious for Zoster more than allergic reaction Sepsis suspected, Avoid Bactrim, HSV in Left arm and back lesions pending. Acyclovir by mouth, Added Vancomycin and Cefepime. HIV screening negative. 2. Sepsis/Left inner thigh cellulitis Status post I&D on 03/28, wound cultures positive for MRSA Completed course of Bactrim continue Vancomycin. blood cultures negative so far. ID following. 3. Left hand swelling/pain No areas of erythema or induration, Hand MRI did not found acute infection. 4. LENORA Improving continue IV fluids. 5. Transaminitis Hepatitis profile negative. LFT's trending down. 6. LLL infiltrate continue IV antibiotics- CXR today. pulmonary following. Discharge Planning awaiting ID f/u and CXR today. Yanick Aguero MD Apr 19, 2017 09:58
--- NOTE | 2017-04-19 10:16 | RADRPT ---
EXAM DATE/TIME: 04/19/2017 09:28 [place] COMPARISON: CHEST SINGLE AP, April 16, 2017, 15:19. INDICATIONS : Pneumonia. MEDICAL HISTORY : None. SURGICAL HISTORY : None. ENCOUNTER: Initial ACUITY: 3 days PAIN SCORE: 0/10 LOCATION: Bilateral chest FINDINGS: Patchy airspace disease in both lungs increased in the interval. Worsen in the lung base. The heart and pulmonary vascularity are normal. The portion of the bony skeleton visualized is unremarkable. CONCLUSION: Increasing airspace disease both lung spaces. No pleural effusion. Marcio Andersen MD FACR on April 19, 2017 at 10:13 Board Certified Radiologist. This report was verified electronically.
[2017-04-19 10:19] LABS: HSV 1,PCR Negative (Negative)
--- NOTE | 2017-04-19 14:14 | HHI.IDPN ---
Subjective Subjective Remarks LUE lesions HSV negative improved clinically off O2 less cough, SOB skin is peeling from face afebrile Antibiotics azithro cefepime vanco\ acyclovit Allergies: Coded Allergies: sulfamethoxazole (Verified Allergy, Severe, RASH, 04/19/17) Marcio Ty syndrom trimethoprim (Verified Allergy, Severe, RASH, 04/19/17) Marcio Ty syndrome Objective . Vital Signs Date Time Temp Pulse Resp B/P (MAP) Pulse Ox O2 Delivery O2 Flow Rate FiO2 04/19/17 12:00 98.6 68 20 117/73 (88) 93 04/19/17 08:39 98.5 76 20 122/68 (86) 94 04/19/17 08:17 96 04/19/17 03:09 99.1 88 16 121/76 (91) 97 04/19/17 00:15 98.2 98 16 140/63 (88) 95 04/18/17 20:30 98.2 85 16 123/68 (86) 95 04/18/17 16:27 93 04/18/17 16:00 99.0 106 17 118/78 (91) 92 . Laboratory Tests Test 04/18/17 07:21 White Blood Count 4.0 TH/MM3 Red Blood Count 3.67 MIL/MM3 Hemoglobin 11.2 GM/DL Hematocrit 33.3 % Mean Corpuscular Volume 90.9 FL Mean Corpuscular Hemoglobin 30.6 PG Mean Corpuscular Hemoglobin Concent 33.7 % Red Cell Distribution Width 13.4 % Platelet Count 136 TH/MM3 Mean Platelet Volume 9.3 FL Neutrophils (%) (Auto) 66.9 % Lymphocytes (%) (Auto) 18.8 % Monocytes (%) (Auto) 12.9 % Eosinophils (%) (Auto) 1.2 % Basophils (%) (Auto) 0.2 % Neutrophils # (Auto) 2.6 TH/MM3 Lymphocytes # (Auto) 0.7 TH/MM3 Monocytes # (Auto) 0.5 TH/MM3 Eosinophils # (Auto) 0.0 TH/MM3 Basophils # (Auto) 0.0 TH/MM3 CBC Comment DIFF FINAL Differential Comment Laboratory Tests Test 04/18/17 07:21 04/18/17 22:33 Blood Urea Nitrogen 19 MG/DL 18 MG/DL Creatinine 1.30 MG/DL 1.24 MG/DL Random Glucose 73 MG/DL 79 MG/DL Calcium Level 8.0 MG/DL 8.2 MG/DL Phosphorus Level 2.5 MG/DL Sodium Level 140 MEQ/L 140 MEQ/L Potassium Level 4.4 MEQ/L 3.9 MEQ/L Chloride Level 110 MEQ/L 108 MEQ/L Carbon Dioxide Level 21.6 MEQ/L 21.7 MEQ/L Anion Gap 8 MEQ/L 10 MEQ/L Estimat Glomerular Filtration Rate 77 ML/MIN 81 ML/MIN Total Protein 6.3 GM/DL Albumin 2.5 GM/DL Alkaline Phosphatase 73 U/L Aspartate Amino Transf (AST/SGOT) 116 U/L Alanine Aminotransferase (ALT/SGPT) 161 U/L Total Bilirubin 0.5 MG/DL Imaging Last Impressions Chest X-Ray 04/19/17 0000 Signed Impressions: Service Date/Time: Wednesday, April 19, 2017 09:28 - CONCLUSION: Increasing airspace disease both lung spaces. No pleural effusion. Marcio Andersen MD FACR Hand MRI 04/16/17 0000 Signed Impressions: Service Date/Time: Sunday, April 16, 2017 09:26 - CONCLUSION: 1. Small ganglion cysts bilaterally. 2. No fracture or bony abnormality. Joints are intact. Boom Guerrero MD Physical Exam CONSTITUTIONAL/GENERAL: This is an adequately nourished patient, in no apparent distress. TUBES/LINES/DRAINS: SKIN: Skin appears to be somewhat erythematous but w/o rash elements Diffuse erythema noted with small soft bullous lesions with a lot of them unroofed and denuded skin is noted on the L arm and L scapula area - they are drying out L thigh lesion - apears healed HEAD: Atraumatic. Normocephalic. EYES: Pupils equal and round and reactive. Extraocular motions intact. No scleral icterus. No injection or drainage. Fundi not examined. ENT: oral mucosa much better NECK: Trachea midline. Supple, nontender. No palpable thyroid enlargement or nodularity. CARDIOVASCULAR: Regular rate and rhythm without murmurs, gallops, or rubs. No JVD. Peripheral pulses symmetric. RESPIRATORY/CHEST: Symmetric, unlabored respirations. Clear to auscultation. Breath sounds equal bilaterally. No wheezes, rales, or rhonchi. GASTROINTESTINAL: Abdomen soft, non-tender, nondistended. No hepato-splenomegaly , or palpable masses. No guarding. Bowel sounds present. GENITOURINARY: Without palpable bladder distension. MUSCULOSKELETAL: Extremities without clubbing, cyanosis, resolved edema . No joint tenderness or effusion noted. No calf tenderness. No mottling or clubbing. LYMPHATICS: No palpable cervical or supraclavicular adenopathy. NEUROLOGICAL: Awake and alert. Motor and sensory grossly within normal limits. Follows commands. clear speech Moves all extremities. PSYCHIATRIC: No obvious anxiety/depression. no apparent hallucinations or other psychotic thought process. Assessment & Plan Remarks Fever, acute renal failure, acute hepatitis, oral thrush - hepatitis profile negative LUE rash suspicious for zoster more than allergic reaction 2/2 clearly dermatomal rather than diffuse distribution - HSV PCR negative Reaction to bactrim Sepsis suspected avoid bactrim, added to abx list, pt was instructed to report sulfa allergies to providers fu HSV in L arm/back lesions P r/o HIV including acute retroviral syndrome (pt agreed to testing, RN was present in the room) - fu HIV VL monitor creatinine dc acyclovir po dct vancomycin and cefepime start CFTX cont azithro pneumococcal antigen mycoplasma serologies Carmina Russ MD Apr 19, 2017 14:14
--- NOTE | 2017-04-19 15:44 | PQ ---
Physician Query Response Document PATIENT: PURNIMA MONTANEZ : 1980 ADMIT DATE: 04/16/2017 7:52 AM DISCH DATE: RESPONDING PROVIDER #: [email or web address] QUERY TEXT: Sepsis Query Based on your medical judgement, can you further define the character of sepsis 1. Sepsis (without organ dysfunction) 2. Severe Sepsis (with Organ Dysfunction or Lactic Acid >2) 3. Septic Shock: Hypotensive no response to fluids or Lactic Acid >4 4. A localized Infection only 5. Another condition - please specify 6. Unable to determine - please explain. Depending on your selection above, please indicate one of the below if applicable: - Sepsis was present on Admission - Sepsis developed after admission The patient's Clinical Indicators include: Per progress note dated 04/18/17 "Sepsis/Left inner thigh cellulitis. Status post I Per ID note dated 04/16/17 Temp 101.0HR 113RR 17BP 71/35 Lactic acid 2.7 to 3.4 Query created by: Ifeoma Jang on 04/18/2017 12:00 AM RESPONSE TEXT: Severe sepsis. Electronically signed by: Yanick Aguero MD 04/19/2017 3:40 PM
[2017-04-19] MEDS: AZITHROMYCIN INJ 500 MG in SODIUM CHLOR 0.9% 250 ML INJ 250 ML IV SCH (16:52)
[2017-04-20] VITALS (9 sets, daily range): BP systolic 112–137; BP diastolic 60–91; PULSE 64–110; RESP 16–18; TEMP 97.9–98.6; O2SAT 92–98
[2017-04-20] MEDS: RESP: ALBUTEROL 2.5 MG/IPRATROPIUM 0.5 MG NEB (SCH) NEB ×7 (03:26→23:37)
[2017-04-20] MEDS: CEFEPIME INJ 2,000 MG in SODIUM CHLORIDE 0.9% INJ 100 ML IV SCH ×2 (04:34→15:40)
[2017-04-20] MEDS: ACYCLOVIR 200 MG CAP PO SCH ×5 (06:11→22:18)
[2017-04-20] MEDS: LACTATED RINGER'S 1000 ML INJ 1,000 ML IV SCH ×2 (06:11→15:48)
[2017-04-20 08:05] LABS: BASOPHIL % 0.3 % (0.0-2.0); EOSINOPHIL # 0.2 TH/MM3 (0-0.4); HEMATOCRIT 35.4 % (39.0-51.0); HEMO FLAGS DIFF FINAL; LYMPH % 27.7 % (9.0-44.0); LYMPHOCYTE # 1.1 TH/MM3 (1.0-4.8); MEAN CELL VOLUME 89.6 FL (80.0-100.0); MEAN CORPUSCULAR HEMOGLOBIN 30.2 PG (27.0-34.0); MEAN CORPUSCULAR HGB CONC 33.7 % (32.0-36.0); MONO % 15.8 % (0.0-8.0); NEUT % 50.2 % (16.0-70.0); PLATELET COUNT 153 TH/MM3 (150-450); RED BLOOD COUNT 3.96 MIL/MM3 (4.50-5.90); RED CELL DISTRIBUTION WIDTH 13.3 % (11.6-17.2); WHITE BLOOD COUNT 3.9 TH/MM3 (4.0-11.0)
[2017-04-20] MEDS: DOCUSATE SODIUM 50 MG/SENNA 8.6 MG TAB PO SCH ×2 (08:17→21:00)
[2017-04-20] MEDS: guaiFENesin E.R. 600 MG TAB PO SCH ×2 (08:17→22:18)
[2017-04-20 08:27] LABS: ANION GAP 11 MEQ/L (5-15); AST (GOT) 63 U/L (15-37); BICARBONATE 22.3 MEQ/L (21.0-32.0); BLOOD UREA NITROGEN 13 MG/DL (7-18); CHLORIDE 106 MEQ/L (98-107); GLOMERULAR FILTRATION RATE 104 ML/MIN (>89); SODIUM (NA) 139 MEQ/L (136-145)
[2017-04-20 08:29] LABS: ALT (GPT) 115 U/L (12-78)
[2017-04-20 08:31] LABS: ALKALINE PHOSPHATASE 67 U/L (45-117); TOTAL BILIRUBIN ADULT 0.6 MG/DL (0.2-1.0)
[2017-04-20] MEDS: SODIUM CHLORIDE 0.9% FLUSH 10 ML FLUSH IV FLUSH SCH ×2 (09:00→21:00)
--- NOTE | 2017-04-20 09:07 | HHI.PR ---
Subjective Remarks in no acute distress. with some cough. no fever. Objective Vitals Vital Signs Date Time Temp Pulse Resp B/P (MAP) Pulse Ox O2 Delivery O2 Flow Rate FiO2 04/20/17 08:36 94 21 04/20/17 04:00 98.5 75 18 128/77 (94) 94 04/20/17 00:00 98.4 64 18 127/80 (96) 92 04/19/17 20:00 98.0 101 18 136/83 (100) 92 04/19/17 16:00 98.1 59 20 122/76 (91) 95 04/19/17 12:00 98.6 68 20 117/73 (88) 93 I/O 04/19/17 04/19/17 04/19/17 04/20/17 04/20/17 04/20/17 07:00 15:00 23:00 07:00 15:00 23:00 Intake Total 350 ml 240 ml 1350 ml Output Total 320 ml 500 ml Balance 30 ml -260 ml 1350 ml Intake Oral 240 ml IV Total 350 ml 1350 ml Output Urine Total 320 ml 500 ml # Voids 1 3 4 # Bowel Movements 1 Result Diagram: 04/20/17 0635 04/20/17 0635 Imaging Last Impressions Chest X-Ray 04/19/17 0000 Signed Impressions: Service Date/Time: Wednesday, April 19, 2017 09:28 - CONCLUSION: Increasing airspace disease both lung spaces. No pleural effusion. Marcio Andersen MD FACR Hand MRI 04/16/17 0000 Signed Impressions: Service Date/Time: Sunday, April 16, 2017 09:26 - CONCLUSION: 1. Small ganglion cysts bilaterally. 2. No fracture or bony abnormality. Joints are intact. Boom Guerrero MD Objective Remarks GENERAL: This is a well-nourished, well-developed patient, in no apparent distress. CARDIOVASCULAR: Regular rate and regular rhythm without murmurs, gallops, or rubs. RESPIRATORY: Clear to auscultation. Breath sounds equal bilaterally. No wheezes , rales, or rhonchi. GASTROINTESTINAL: Abdomen soft, non-tender, nondistended. Normal, active bowel sounds MUSCULOSKELETAL: Extremities without clubbing, cyanosis, or edema. NEURO: Alert & Oriented x4 to person, place, time, situation. Moves all ext x4 skin; rash noted on the left shoulder Medications and IVs Current Medications Bacitracin (Baciguent Oint) 1 applic ONCE ONCE TOPICAL Last administered on 07:17; Start 04/16/17 at 06:00; Stop 04/16/17 at 06:01; Status DC Sodium Chloride 1,000 ml @ 999 mls/hr BOLUS ONCE IV Last administered on 04/16 06:58; Start 04/16/17 at 07:00; Stop 04/16/17 at 08:00; Status DC Sodium Chloride 1,000 ml @ 999 mls/hr BOLUS ONCE IV Last administered on 04/16 06:58; Start 04/16/17 at 07:00; Stop 04/16/17 at 08:00; Status DC Diphenhydramine HCl (Benadryl Inj) 12.5 mg ONCE ONCE IV PUSH Last administered on 04/16/17 07:59; Start 04/16/17 at 07:30; Stop 04/16/17 at 07:31 ; Status DC Dextrose/Sodium Chloride 1,000 ml @ 100 mls/hr Q10H IV Last administered on 07:59; Start 04/16/17 at 07:30; Stop 04/16/17 at 08:49; Status DC Methylprednisolone Sodium Succinate (SoluMEDROL INJ) 125 mg ONCE ONCE IV PUSH Last administered on 04/16/17 07:59; Start 04/16/17 at 07:45; Stop 04/16/17 at 07:46; Status DC Sodium Chloride 1,000 ml @ 125 mls/hr Q8H IV Last administered on 04/16/17 22 :20; Start 04/16/17 at 09:00; Stop 04/17/17 at 06:44; Status DC Sodium Chloride (NS Flush) 2 ml UNSCH PRN IV FLUSH FLUSH AFTER USING IV ACCESS ; Start 04/16/17 at 08:30 Sodium Chloride (NS Flush) 2 ml BID IV FLUSH Last administered on 04/18/17 21: 00; Start 04/16/17 at 09:00 Acetaminophen (Tylenol) 650 mg Q4H PRN PO TEMP > 100.4; Start 04/16/17 at 08:30 Ondansetron HCl (Zofran Inj) 4 mg Q6H PRN IVP NAUSEA OR VOMITING; Start at 08:30 Naloxone HCl (Narcan Inj) 0.4 mg UNSCH PRN IV PUSH SEE LABEL COMMENTS; Start 04/16/17 at 08:30 Senna/Docusate Sodium (Taina-Colace) 1 tab BID PO Last administered on 08:17; Start 04/16/17 at 09:00 Magnesium Hydroxide (Milk Of Magnesia Liq) 30 ml Q12H PRN PO Mild constipation ; Start 04/16/17 at 08:30 Sennosides (Senokot) 17.2 mg Q12H PRN PO Moderate constipation; Start 04/16/17 at 08:30 Bisacodyl (Dulcolax Supp) 10 mg DAILY PRN RECTAL SEVERE CONSITIPATION; Start 04/16/17 at 08:30 Lactulose (Lactulose Liq) 30 ml DAILY PRN PO SEVERE CONSITIPATION; Start at 08:30 Pharmacy Profile Note 0 ml @ 0 mls/hr UNSCH OTHER ; Start 04/16/17 at 09:15; Stop 04/17/17 at 11:48; Status DC Vancomycin HCl 1250 mg/Sodium Chloride 262.5 ml @ 250 mls/hr ONCE ONCE IV Last administered on 04/16/17 13:50; Start 04/16/17 at 12:00; Stop 04/16/17 at 13:02; Status DC Oxycodone/ Acetaminophen (Percocet 5-325 Mg) 1 tab Q4H PRN PO pain 6-10; Start 04/16/17 at 09:30 Gadodiamide (Omniscan Pf Inj) 14 ml STK-MED ONCE IVCONTRAST Last administered on 04/16/17 09:48; Start 04/16/17 at 09:48; Stop 04/16/17 at 09:49; Status DC Sodium Chloride 1,000 ml @ 999 mls/hr BOLUS ONCE IV Last administered on 04/16 11:00; Start 04/16/17 at 11:00; Stop 04/16/17 at 12:00; Status DC Acyclovir (Zovirax) 200 mg 5 TIMES A DAY PO Last administered on 04/20/17 08: 17; Start 04/16/17 at 18:00 Pharmacy Profile Note 0 ml @ 0 mls/hr UNSCH OTHER ; Start 04/16/17 at 15:15 Cefepime HCl 2000 mg/Sodium Chloride 100 ml @ 200 mls/hr Q12H IV Last administered on 04/20/17 04:34; Start 04/16/17 at 16:00 Sodium Chloride 1,000 ml @ 999 mls/hr BOLUS ONCE IV ; Start 04/16/17 at 20:00 ; Stop 04/16/17 at 21:00; Status DC Sodium Chloride 1,000 ml @ 999 mls/hr BOLUS ONCE IV Last administered on 04/17 03:15; Start 04/17/17 at 03:15; Stop 04/17/17 at 04:15; Status DC Lactated Ringer's 1,000 ml @ 999 mls/hr BOLUS ONCE IV Last administered on 06:30; Start 04/17/17 at 06:30; Stop 04/17/17 at 07:30; Status DC Lactated Ringer's 1,000 ml @ 100 mls/hr Q10H IV Last administered on 06:11; Start 04/17/17 at 06:45 Vancomycin HCl 1000 mg/Sodium Chloride 250 ml @ 250 mls/hr Q12H IV Last administered on 04/19/17 23:34; Start 04/17/17 at 12:00 Miscellaneous Information SPECIFIC LAB TO BE ... ONCE ONCE .XX Last administered on 04/18/17 23:45; Start 04/18/17 at 23:45; Stop 04/18/17 at 23:46 ; Status DC Albuterol/ Ipratropium (Duoneb Neb) 1 ampule Q4HR NEB NEB Last administered on 04/20/17 08:36; Start 04/17/17 at 20:00 Guaifenesin (Mucinex Er) 600 mg BID PO Last administered on 04/20/17 08:17; Start 04/17/17 at 21:00 Azithromycin 500 mg/Sodium Chloride 250 ml @ 250 mls/hr Q24H IV Last administered on 04/19/17 16:52; Start 04/18/17 at 17:00 A/P Assessment and Plan 1. Left Upper exremity rash . Seen by ID with diagnosis of Left upper extremity rash suspicious for Zoster more than allergic reaction Sepsis suspected, Avoid Bactrim, HSV in Left arm and back lesions negative. HIV screening negative. antibiotics per ID. 2. Sepsis/Left inner thigh cellulitis Status post I&D on 03/28, wound cultures positive for MRSA Completed course of Bactrim continue Vancomycin. blood cultures negative so far. ID following. 3. Left hand swelling/pain No areas of erythema or induration, Hand MRI did not found acute infection. 4. LENORA Improving continue IV fluids. 5. Transaminitis- improving. Hepatitis profile negative. LFT's trending down. 6. LLL infiltrate continue IV antibiotics per ID. pulmonary following. Yanick Aguero MD Apr 20, 2017 09:07
[2017-04-20] MEDS: VANCOMYCIN 1,000 MG/NS 250 ML IV SCH ×2 (15:49)
--- NOTE | 2017-04-20 16:28 | HHI.PR ---
Addendum to Inpatient Note Additional Information pt was seen around 1200 today full note to follow Carmina Russ MD Apr 20, 2017 16:28
[2017-04-20] MEDS: AZITHROMYCIN INJ 500 MG in SODIUM CHLOR 0.9% 250 ML INJ 250 ML IV SCH (17:29)
--- NOTE | 2017-04-20 17:42 | HHI.PR ---
Subjective Remarks ALERT NO SOB CXRAY INCREASING INFILTRATES Objective Vital Signs Date Time Temp Pulse Resp B/P (MAP) Pulse Ox O2 Delivery O2 Flow Rate FiO2 04/20/17 16:07 97 04/20/17 12:00 98.4 90 18 129/75 (93) 97 04/20/17 08:36 94 21 04/20/17 08:00 97.9 110 18 112/60 (77) 98 04/20/17 04:00 98.5 75 18 128/77 (94) 94 04/20/17 00:00 98.4 64 18 127/80 (96) 92 04/19/17 20:00 98.0 101 18 136/83 (100) 92 I/O 04/19/17 04/19/17 04/19/17 04/20/17 04/20/17 04/20/17 07:00 15:00 23:00 07:00 15:00 23:00 Intake Total 350 ml 240 ml 1350 ml Output Total 320 ml 500 ml Balance 30 ml -260 ml 1350 ml Intake Oral 240 ml IV Total 350 ml 1350 ml Output Urine Total 320 ml 500 ml # Voids 1 3 4 # Bowel Movements 1 Result Diagram: 04/20/17 0635 04/20/17 0635 Procedures None Objective Remarks GENERAL: SKIN: Warm and dry. HEAD: Atraumatic. Normocephalic. EYES: Pupils equal and round. No scleral icterus. No injection or drainage. ENT: No nasal bleeding or discharge. Mucous membranes pink and moist. NECK: Trachea midline. No JVD. CARDIOVASCULAR: Regular rate and rhythm. RESPIRATORY: No accessory muscle use. Clear to auscultation. Breath sounds equal bilaterally. GASTROINTESTINAL: Abdomen soft, non-tender, nondistended. Hepatic and splenic margins not palpable. MUSCULOSKELETAL: Extremities without clubbing, cyanosis, or edema. No obvious deformities. NEUROLOGICAL: Awake and alert. No obvious cranial nerve deficits. Motor grossly within normal limits. Five out of 5 muscle strength in the arms and legs. Normal speech. PSYCHIATRIC: Appropriate mood and affect; insight and judgment normal. Assessment and Plan Assessment and Plan LLL INFILTRATE INCREASED SCOTTY EXTREMETY RASH PLAN CONTINUE ANTIBIOTICS F/U CXRAY FEW DAYS Chencho Paiz MD Apr 20, 2017 17:42
--- NOTE | 2017-04-20 22:13 | HHI.IDPN ---
Subjective Subjective Remarks this is delaeyed entry pt was seen earlier today on RA breathing OK afebrile blood clx remain negative @ 4 days Antibiotics azithro cefepime vanco\ Allergies: Coded Allergies: sulfamethoxazole (Verified Allergy, Severe, RASH, 04/19/17) Marcio Ty syndrom trimethoprim (Verified Allergy, Severe, RASH, 04/19/17) Marcio Ty syndrome Objective . Vital Signs Date Time Temp Pulse Resp B/P (MAP) Pulse Ox O2 Delivery O2 Flow Rate FiO2 04/20/17 21:00 98.4 75 16 137/91 (106) 93 04/20/17 20:57 97 04/20/17 16:07 97 04/20/17 16:00 98.6 66 18 130/82 (98) 96 04/20/17 12:00 98.4 90 18 129/75 (93) 97 04/20/17 08:36 94 21 04/20/17 08:00 97.9 110 18 112/60 (77) 98 04/20/17 04:00 98.5 75 18 128/77 (94) 94 04/20/17 00:00 98.4 64 18 127/80 (96) 92 04/20/17 04/20/17 04/21/17 15:00 23:00 07:00 # Voids 4 3 . Laboratory Tests Test 04/20/17 06:35 White Blood Count 3.9 TH/MM3 Red Blood Count 3.96 MIL/MM3 Hemoglobin 11.9 GM/DL Hematocrit 35.4 % Mean Corpuscular Volume 89.6 FL Mean Corpuscular Hemoglobin 30.2 PG Mean Corpuscular Hemoglobin Concent 33.7 % Red Cell Distribution Width 13.3 % Platelet Count 153 TH/MM3 Mean Platelet Volume 9.6 FL Neutrophils (%) (Auto) 50.2 % Lymphocytes (%) (Auto) 27.7 % Monocytes (%) (Auto) 15.8 % Eosinophils (%) (Auto) 6.0 % Basophils (%) (Auto) 0.3 % Neutrophils # (Auto) 2.0 TH/MM3 Lymphocytes # (Auto) 1.1 TH/MM3 Monocytes # (Auto) 0.6 TH/MM3 Eosinophils # (Auto) 0.2 TH/MM3 Basophils # (Auto) 0.0 TH/MM3 CBC Comment DIFF FINAL Differential Comment Laboratory Tests Test 04/18/17 22:33 04/20/17 06:35 Blood Urea Nitrogen 18 MG/DL 13 MG/DL Creatinine 1.24 MG/DL 1.00 MG/DL Random Glucose 79 MG/DL 60 MG/DL Total Protein 6.3 GM/DL 6.6 GM/DL Albumin 2.5 GM/DL 2.6 GM/DL Calcium Level 8.2 MG/DL 8.4 MG/DL Alkaline Phosphatase 73 U/L 67 U/L Aspartate Amino Transf (AST/SGOT) 116 U/L 63 U/L Alanine Aminotransferase (ALT/SGPT) 161 U/L 115 U/L Total Bilirubin 0.5 MG/DL 0.6 MG/DL Sodium Level 140 MEQ/L 139 MEQ/L Potassium Level 3.9 MEQ/L 4.0 MEQ/L Chloride Level 108 MEQ/L 106 MEQ/L Carbon Dioxide Level 21.7 MEQ/L 22.3 MEQ/L Anion Gap 10 MEQ/L 11 MEQ/L Estimat Glomerular Filtration Rate 81 ML/MIN 104 ML/MIN Imaging Last Impressions Chest X-Ray 04/19/17 0000 Signed Impressions: Service Date/Time: Wednesday, April 19, 2017 09:28 - CONCLUSION: Increasing airspace disease both lung spaces. No pleural effusion. Marcio Andersen MD FACR Hand MRI 04/16/17 0000 Signed Impressions: Service Date/Time: Sunday, April 16, 2017 09:26 - CONCLUSION: 1. Small ganglion cysts bilaterally. 2. No fracture or bony abnormality. Joints are intact. Boom Guerrero MD Physical Exam CONSTITUTIONAL/GENERAL: This is an adequately nourished patient, in no apparent distress. TUBES/LINES/DRAINS: SKIN: Skin appears to be somewhat erythematous but w/o rash elements nearly resolved erythema LUE/back lesions - drying L thigh lesion - apears healed CARDIOVASCULAR: Regular rate and rhythm without murmurs, gallops, or rubs. No JVD. Peripheral pulses symmetric. RESPIRATORY/CHEST: Symmetric, unlabored respirations. Clear to auscultation. Breath sounds equal bilaterally. No wheezes, rales, or rhonchi. GASTROINTESTINAL: Abdomen soft, non-tender, nondistended. No hepato-splenomegaly , or palpable masses. No guarding. Bowel sounds present. GENITOURINARY: Without palpable bladder distension. MUSCULOSKELETAL: Extremities without clubbing, cyanosis, resolved edema . No joint tenderness or effusion noted. No calf tenderness. No mottling or clubbing. NEUROLOGICAL: Awake and alert. Motor and sensory grossly within normal limits. Follows commands. clear speech Moves all extremities. PSYCHIATRIC: No obvious anxiety/depression. Assessment & Plan Remarks Fever, acute renal failure, acute hepatitis, oral thrush - hepatitis profile negative LUE rash suspicious for zoster more than allergic reaction 2/2 clearly dermatomal rather than diffuse distribution - HSV PCR negative Reaction to bactrim Sepsis suspected - resolved Pt is clincially improving and can be d/c in next 24-48 hrs avoid bactrim, added to abx list, pt was instructed to report sulfa allergies to providers fu HSV in L arm/back lesions P r/o HIV including acute retroviral syndrome (pt agreed to testing, RN was present in the room) - fu HIV VL monitor creatinine dc acyclovir po dct vancomycin and cefepime start CFTX cont azithro pneumococcal antigen mycoplasma serologies Carmina Russ MD Apr 20, 2017 22:13
[2017-04-20] MEDS ORDERED: cefTRIAXone INJ 2,000 MG in SODIUM CHLORIDE 0.9% INJ 100 ML IV SCH (23:00)
[2017-04-21 01:22] VITALS: BP 128/72; PULSE 67; RESP 16; TEMP 98.9; O2SAT 92
[2017-04-21] MEDS: RESP: ALBUTEROL 2.5 MG/IPRATROPIUM 0.5 MG NEB (SCH) NEB ×4 (03:05→12:32)
[2017-04-21 05:27] VITALS: BP 123/76; PULSE 68; RESP 16; TEMP 98.7; O2SAT 94
[2017-04-21] MEDS: LACTATED RINGER'S 1000 ML INJ 1,000 ML IV SCH ×2 (05:34→11:05)
[2017-04-21] MEDS: ACYCLOVIR 200 MG CAP PO SCH ×3 (05:34→14:25)
[2017-04-21 08:08] VITALS: BP 132/78; PULSE 60; RESP 12; TEMP 98.7; O2SAT 95
[2017-04-21] MEDS: SODIUM CHLORIDE 0.9% FLUSH 10 ML FLUSH IV FLUSH SCH (09:40)
[2017-04-21] MEDS: guaiFENesin E.R. 600 MG TAB PO SCH (09:42)
[2017-04-21] MEDS: DOCUSATE SODIUM 50 MG/SENNA 8.6 MG TAB PO SCH (09:43)
--- NOTE | 2017-04-21 09:43 | HHI.PR ---
Subjective Remarks in no distress. remains afebrile. overall doing better. d/w the RN and no acute issues over night. Objective Vitals Vital Signs Date Time Temp Pulse Resp B/P (MAP) Pulse Ox O2 Delivery O2 Flow Rate FiO2 04/21/17 08:08 98.7 60 12 132/78 (96) 95 04/21/17 05:27 98.7 68 16 123/76 (92) 94 04/21/17 01:22 98.9 67 16 128/72 (90) 92 04/20/17 21:00 98.4 75 16 137/91 (106) 93 04/20/17 20:57 97 04/20/17 16:07 97 04/20/17 16:00 98.6 66 18 130/82 (98) 96 04/20/17 12:00 98.4 90 18 129/75 (93) 97 I/O 04/20/17 04/20/17 04/20/17 04/21/17 04/21/17 04/21/17 07:00 15:00 23:00 07:00 15:00 23:00 Intake Total 1350 ml Output Total 800 ml 425 ml Balance 1350 ml -800 ml -425 ml IV Total 1350 ml Output Urine Total 800 ml 425 ml # Voids 4 3 # Bowel Movements 0 Result Diagram: 04/20/17 0635 04/20/17 0635 Imaging Last Impressions Chest X-Ray 04/19/17 0000 Signed Impressions: Service Date/Time: Wednesday, April 19, 2017 09:28 - CONCLUSION: Increasing airspace disease both lung spaces. No pleural effusion. Marcio Andersen MD FACR Hand MRI 04/16/17 0000 Signed Impressions: Service Date/Time: Sunday, April 16, 2017 09:26 - CONCLUSION: 1. Small ganglion cysts bilaterally. 2. No fracture or bony abnormality. Joints are intact. Boom Guerrero MD Objective Remarks GENERAL: This is a well-nourished, well-developed patient, in no apparent distress. CARDIOVASCULAR: Regular rate and regular rhythm without murmurs, gallops, or rubs. RESPIRATORY: Clear to auscultation. Breath sounds equal bilaterally. No wheezes , rales, or rhonchi. GASTROINTESTINAL: Abdomen soft, non-tender, nondistended. Normal, active bowel sounds MUSCULOSKELETAL: Extremities without clubbing, cyanosis, or edema. NEURO: Alert & Oriented x4 to person, place, time, situation. Moves all ext x4 skin; rash noted on the left shoulder Procedures none Medications and IVs Current Medications Bacitracin (Baciguent Oint) 1 applic ONCE ONCE TOPICAL Last administered on 07:17; Start 04/16/17 at 06:00; Stop 04/16/17 at 06:01; Status DC Sodium Chloride 1,000 ml @ 999 mls/hr BOLUS ONCE IV Last administered on 04/16 06:58; Start 04/16/17 at 07:00; Stop 04/16/17 at 08:00; Status DC Sodium Chloride 1,000 ml @ 999 mls/hr BOLUS ONCE IV Last administered on 04/16 06:58; Start 04/16/17 at 07:00; Stop 04/16/17 at 08:00; Status DC Diphenhydramine HCl (Benadryl Inj) 12.5 mg ONCE ONCE IV PUSH Last administered on 04/16/17 07:59; Start 04/16/17 at 07:30; Stop 04/16/17 at 07:31 ; Status DC Dextrose/Sodium Chloride 1,000 ml @ 100 mls/hr Q10H IV Last administered on 07:59; Start 04/16/17 at 07:30; Stop 04/16/17 at 08:49; Status DC Methylprednisolone Sodium Succinate (SoluMEDROL INJ) 125 mg ONCE ONCE IV PUSH Last administered on 04/16/17 07:59; Start 04/16/17 at 07:45; Stop 04/16/17 at 07:46; Status DC Sodium Chloride 1,000 ml @ 125 mls/hr Q8H IV Last administered on 04/16/17 22 :20; Start 04/16/17 at 09:00; Stop 04/17/17 at 06:44; Status DC Sodium Chloride (NS Flush) 2 ml UNSCH PRN IV FLUSH FLUSH AFTER USING IV ACCESS ; Start 04/16/17 at 08:30 Sodium Chloride (NS Flush) 2 ml BID IV FLUSH Last administered on 04/20/17 09: 00; Start 04/16/17 at 09:00 Acetaminophen (Tylenol) 650 mg Q4H PRN PO TEMP > 100.4; Start 04/16/17 at 08:30 Ondansetron HCl (Zofran Inj) 4 mg Q6H PRN IVP NAUSEA OR VOMITING; Start at 08:30 Naloxone HCl (Narcan Inj) 0.4 mg UNSCH PRN IV PUSH SEE LABEL COMMENTS; Start 04/16/17 at 08:30 Senna/Docusate Sodium (Taina-Colace) 1 tab BID PO Last administered on 08:17; Start 04/16/17 at 09:00 Magnesium Hydroxide (Milk Of Magnesia Liq) 30 ml Q12H PRN PO Mild constipation ; Start 04/16/17 at 08:30 Sennosides (Senokot) 17.2 mg Q12H PRN PO Moderate constipation; Start 04/16/17 at 08:30 Bisacodyl (Dulcolax Supp) 10 mg DAILY PRN RECTAL SEVERE CONSITIPATION; Start 04/16/17 at 08:30 Lactulose (Lactulose Liq) 30 ml DAILY PRN PO SEVERE CONSITIPATION; Start at 08:30 Pharmacy Profile Note 0 ml @ 0 mls/hr UNSCH OTHER ; Start 04/16/17 at 09:15; Stop 04/17/17 at 11:48; Status DC Vancomycin HCl 1250 mg/Sodium Chloride 262.5 ml @ 250 mls/hr ONCE ONCE IV Last administered on 04/16/17 13:50; Start 04/16/17 at 12:00; Stop 04/16/17 at 13:02; Status DC Oxycodone/ Acetaminophen (Percocet 5-325 Mg) 1 tab Q4H PRN PO pain 6-10; Start 04/16/17 at 09:30 Gadodiamide (Omniscan Pf Inj) 14 ml STK-MED ONCE IVCONTRAST Last administered on 04/16/17 09:48; Start 04/16/17 at 09:48; Stop 04/16/17 at 09:49; Status DC Sodium Chloride 1,000 ml @ 999 mls/hr BOLUS ONCE IV Last administered on 04/16 11:00; Start 04/16/17 at 11:00; Stop 04/16/17 at 12:00; Status DC Acyclovir (Zovirax) 200 mg 5 TIMES A DAY PO Last administered on 04/21/17 05: 34; Start 04/16/17 at 18:00 Pharmacy Profile Note 0 ml @ 0 mls/hr UNSCH OTHER ; Start 04/16/17 at 15:15; Stop 04/20/17 at 22:14; Status DC Cefepime HCl 2000 mg/Sodium Chloride 100 ml @ 200 mls/hr Q12H IV Last administered on 04/20/17 15:40; Start 04/16/17 at 16:00; Stop 04/20/17 at 22:14 ; Status DC Sodium Chloride 1,000 ml @ 999 mls/hr BOLUS ONCE IV ; Start 04/16/17 at 20:00 ; Stop 04/16/17 at 21:00; Status DC Sodium Chloride 1,000 ml @ 999 mls/hr BOLUS ONCE IV Last administered on 04/17 03:15; Start 04/17/17 at 03:15; Stop 04/17/17 at 04:15; Status DC Lactated Ringer's 1,000 ml @ 999 mls/hr BOLUS ONCE IV Last administered on 06:30; Start 04/17/17 at 06:30; Stop 04/17/17 at 07:30; Status DC Lactated Ringer's 1,000 ml @ 100 mls/hr Q10H IV Last administered on 05:34; Start 04/17/17 at 06:45 Vancomycin HCl 1000 mg/Sodium Chloride 250 ml @ 250 mls/hr Q12H IV Last administered on 04/20/17 15:49; Start 04/17/17 at 12:00; Stop 04/20/17 at 22:14 ; Status DC Miscellaneous Information SPECIFIC LAB TO BE BENJIE... ONCE ONCE .XX Last administered on 04/18/17 23:45; Start 04/18/17 at 23:45; Stop 04/18/17 at 23:46 ; Status DC Albuterol/ Ipratropium (Duoneb Neb) 1 ampule Q4HR NEB NEB Last administered on 04/20/17 08:36; Start 04/17/17 at 20:00 Guaifenesin (Mucinex Er) 600 mg BID PO Last administered on 04/20/17 22:18; Start 04/17/17 at 21:00 Azithromycin 500 mg/Sodium Chloride 250 ml @ 250 mls/hr Q24H IV Last administered on 04/20/17 17:29; Start 04/18/17 at 17:00 Miscellaneous Information SPECIFIC LAB TO BE DRAWN:VANCOMYCIN TROUGH DATE TO... ONCE ONCE .XX ; Start 04/21/17 at 11:45; Stop 04/21/17 at 11:45; Status DC Ceftriaxone Sodium 2000 mg/ Sodium Chloride 100 ml @ 200 mls/hr Q24H IV Last administered on 04/20/17 23:58; Start 04/20/17 at 23:00 A/P Assessment and Plan 1. Left Upper exremity rash . Seen by ID with diagnosis of Left upper extremity rash suspicious for Zoster more than allergic reaction Sepsis suspected, Avoid Bactrim, HSV in Left arm and back lesions negative. HIV screening negative. antibiotics per ID. 2. Sepsis/Left inner thigh cellulitis Status post I&D on 03/28, wound cultures positive for MRSA Completed course of Bactrim blood cultures negative so far. ID following. 3. Left hand swelling/pain No areas of erythema or induration, Hand MRI did not found acute infection. 4. LENORA Improving continue IV fluids. 5. Transaminitis- improving. Hepatitis profile negative. LFT's trending down. 6. LLL infiltrate continue IV antibiotics per ID. pulmonary following. CXR in 1-2 weeks -as outpatient. Discharge Planning discharge within the next 24 hrs- when cleared by ID. Yanick Aguero MD Apr 21, 2017 09:43
[2017-04-21] MEDS ORDERED: PHARMACY ORDERED LAB ONE (11:45)
[2017-04-21 11:54] LABS: HIV RNA COPIES LESS THAN 20.0 (<20); HIV RNA LOG COPIES LESS THAN 1.30 (<1.30)
[2017-04-21 12:00] VITALS: BP 139/64; PULSE 60; RESP 20; TEMP 98.9; O2SAT 95
--- NOTE | 2017-04-21 12:26 | HHI.PR ---
Addendum to Inpatient Note Additional Information Pt is doing good All studies are negative He is afebrile, on RA OK to dc home from ID standpoint Carmina Russ MD Apr 21, 2017 12:26
--- NOTE | 2017-04-21 15:16 | HHI.PR ---
Addendum To [facility] Progress Not Reason for addendum: Additonal documentation (d/w ; patient was cleared for discharge with no antibiotics- will dc home; d/w the case management.) Yanick Aguero MD Apr 21, 2017 15:16
--- NOTE | 2017-04-21 15:19 | HHI.DS ---
Discharge Summary Admission Date Apr 16, 2017 at 07:52 Discharge Date: Apr 21, 2017 Admitting Diagnosis toxic epidermal necrosis (1) Allergic reaction ICD Code: T78.40XA - Allergy, unspecified, initial encounter Status: Acute Procedures none Brief History - From Admission 36-year-old male with a past medical history significant for recent left inner thigh abscess presents to the emergency department with a 2 day history of left hand pain and new onset desquamation on the left shoulder and trunk. Patient was seen in the emergency department on 03/25 for a left inner thigh abscess where he was given a 10 day prescription of Bactrim and discharged to home. He returned on 03/28 where an I&D was performed. Patient was instructed to continue his antibiotics which he did. He returned to the emergency department yesterday with a chief complaint of left wrist and hand pain. He was diagnosed with left thumb tendinitis, ganglion cyst of the left wrist and continued left inner thigh cellulitis. He was given another dose of Bactrim and discharged to home with a prescription for Bactrim. The patient did not fill his prescription. He reports that yesterday he developed burning pain and blisters on his posterior left arm and trunk. He states the blisters ruptured in the skin fell off. He has areas of open pink tissue where the skin has sloughed off. He complains of severe pain in his left hand and reports decreased strength in that hand. He also reports that his left inner thigh cellulitis is starting to worsen as the area is becoming thick and continues to drain small amounts of purulent material. CBC/BMP: 04/20/17 0635 04/20/17 0635 Significant Findings Laboratory Tests Test 04/18/17 22:33 04/20/17 06:35 04/21/17 09:25 Total Protein 6.3 GM/DL (6.4-8.2) Albumin 2.5 GM/DL (3.4-5.0) 2.6 GM/DL (3.4-5.0) Calcium Level 8.2 MG/DL (8.5-10.1) 8.4 MG/DL (8.5-10.1) Aspartate Amino Transf (AST/SGOT) 116 U/L (15-37) 63 U/L (15-37) Alanine Aminotransferase (ALT/SGPT) 161 U/L (12-78) 115 U/L (12-78) Chloride Level 108 MEQ/L (98-107) Estimat Glomerular Filtration Rate 81 ML/MIN (>89) Vancomycin Level Trough 17.7 MCG/ML (5.0-10.0) White Blood Count 3.9 TH/MM3 (4.0-11.0) Red Blood Count 3.96 MIL/MM3 (4.50-5.90) Hemoglobin 11.9 GM/DL (13.0-17.0) Hematocrit 35.4 % (39.0-51.0) Monocytes (%) (Auto) 15.8 % (0.0-8.0) Eosinophils (%) (Auto) 6.0 % (0.0-4.0) Random Glucose 60 MG/DL (74-106) Imaging Last Impressions Chest X-Ray 04/19/17 0000 Signed Impressions: Service Date/Time: Wednesday, April 19, 2017 09:28 - CONCLUSION: Increasing airspace disease both lung spaces. No pleural effusion. Marcio Andersen MD FACR Hand MRI 04/16/17 0000 Signed Impressions: Service Date/Time: Sunday, April 16, 2017 09:26 - CONCLUSION: 1. Small ganglion cysts bilaterally. 2. No fracture or bony abnormality. Joints are intact. Boom Guerrero MD PE at Discharge GENERAL: This is a well-nourished, well-developed patient, in no apparent distress. CARDIOVASCULAR: Regular rate and regular rhythm without murmurs, gallops, or rubs. RESPIRATORY: Clear to auscultation. Breath sounds equal bilaterally. No wheezes , rales, or rhonchi. GASTROINTESTINAL: Abdomen soft, non-tender, nondistended. Normal, active bowel sounds MUSCULOSKELETAL: Extremities without clubbing, cyanosis, or edema. NEURO: Alert & Oriented x4 to person, place, time, situation. Moves all ext x4 skin; rash noted on the left shoulder Hospital Course patient was admitted with the rash; suspected Zoster vs allergic reaction. he was also found to have LLL infiltrate. he was evaluated by ID and pulmonary. he was treated with antibiotics per ID recommendations. he will have a CXR in 1-2 weeks as part of his follow-up for lung infiltrate. he was cleared for discharge by ID with no antibiotics. Pt Condition on Discharge: Fair Discharge Disposition: Discharge Home Discharge Time: <= 30 minutes Discharge Instructions DIET: Follow Instructions for: Heart Healthy Diet Activities you can perform: Regular-No Restrictions Follow up Referrals: PCP Follow-up Discontinued Medications: Diclofenac Sodium DR (Diclofenac Sodium DR) 75 Mg Tabdr 75 MG PO BID, #20 TAB 0 Refills Sulfamethoxazole-Trimethoprim (Bactrim DS) 800-160 Mg Tab 1 TAB PO BID for Infection, #20 TAB 0 Refills Yanick Aguero MD Apr 21, 2017 15:19
[2017-04-21 16:00] VITALS: BP 140/82; PULSE 63; RESP 20; TEMP 98.8; O2SAT 96
== END 2017-04-21 18:06 | disposition home or self-care (01) | DRG 872 ==
LOC: NEPE 05:05 → NEDA 07:52 → N05B 10:04
PROVIDERS: ADMIT Internal Medicine; ATTEND Internal Medicine
DX: A41.9 Sepsis, unspecified organism (principal); N17.9 Acute kidney failure, unspecified; B37.0 Candidal stomatitis; L03.116 Cellulitis of left lower limb; B95.62 Methicillin resistant Staphylococcus aureus infection as the cause of diseases classified elsewhere; R65.20 Severe sepsis without septic shock; B02.9 Zoster without complications; T37.0X5A Adverse effect of sulfonamides, initial encounter; R09.02 Hypoxemia; R74.0 Nonspecific elevation of levels of transaminase and lactic acid dehydrogenase [LDH]; R91.8 Other nonspecific abnormal finding of lung field
CPT/HCPCS: 71010; 73220; 80048; 80053; 80074; 80202; 83605; 83735; 84100; 85007; 85025; 85027; 86703; 86738; 87040; 87449; 87529; 87536; 94150; 94640; 94664; 96360; A9579; J0456; J0692; J0696; J1200; J2930; J3370; J7030; J7050; J7120

== ENCOUNTER 2017-04-27 20:12 | Emergency (ER) | payer SELFPAY ==
[2017-04-27 20:15] VITALS: BP 142/66; PULSE 98; RESP 16; TEMP 98.5; O2SAT 97
[2017-04-27] MEDS ORDERED: SODIUM CHLOR 0.9% 1000 ML INJ 1,000 ML IV SCH ×2 (20:43)
--- NOTE | 2017-04-27 20:59 | PD ---
HPI Chief Complaint: Skin Problem Time Seen by Provider: 20:40 Travel History International Travel<30 days: No Contact w/Intl Traveler<30days: No Traveled to known affect area: No History of Present Illness HPI 36-year-old male presents for evaluation of progressive rash/disclamation of the skin. He initially developed an abscess to the left thigh in March. He was placed on Bactrim. He was seen here on April 16 with a bolus rash to the left scapular and left upper humeral head area which was felt to be toxic epidermal necrolysis when he was admitted. He was seen by infectious disease during his hospitalization who felt that the rash was suspicious for zoster more than allergic reaction. HSV testing was negative. He was also found to have a pulmonary infiltrate during hospitalization. He was discharged on April 21. Since then the rash is progressed. He now has peeling on the legs , arms, torso. Symptoms are moderate, no alleviating factors. PFSH Past Medical History Diminished Hearing: No Social History Alcohol Use: Yes (OCCASIONALLY) Tobacco Use: Yes (OCC) Substance Use: No Allergies-Medications (Allergen,Severity, Reaction): Coded Allergies: sulfamethoxazole (Verified Allergy, Severe, RASH, 04/19/17) Marcio Ty syndrom trimethoprim (Verified Allergy, Severe, RASH, 04/19/17) Marcio Ty syndrome Reported Meds & Prescriptions Reported Meds & Active Scripts Active No Active Prescriptions or Reported Medications Review of Systems Except as stated in HPI: all other systems reviewed are Neg Physical Exam Narrative GENERAL: Well-developed well-nourished male in no acute distress SKIN: Warm and dry. The patient has significant areas of skin sloughing/ desquamation on the legs/arms/torso. HEAD: Atraumatic. Normocephalic. EYES: Pupils equal and round. No scleral icterus. No injection or drainage. ENT: No nasal bleeding or discharge. Mucous membranes pink and moist. NECK: Trachea midline. No JVD. CARDIOVASCULAR: Regular rate and rhythm. No murmur appreciated. RESPIRATORY: No accessory muscle use. Clear to auscultation. Breath sounds equal bilaterally. GASTROINTESTINAL: Abdomen soft, non-tender, nondistended. Hepatic and splenic margins not palpable. MUSCULOSKELETAL: No obvious deformities. No clubbing. No cyanosis. No edema. NEUROLOGICAL: Awake and alert. No obvious cranial nerve deficits. Motor grossly within normal limits. Normal speech. PSYCHIATRIC: Appropriate mood and affect; insight and judgment normal. Data Data Last Documented VS Vital Signs Date Time Temp Pulse Resp B/P (MAP) Pulse Ox O2 Delivery O2 Flow Rate FiO2 04/28/17 00:52 97 18 157/79 (105) 100 Room Air 04/27/17 20:15 98.5 Orders Orders Complete Blood Count With Diff (04/27/17 20:43) Comprehensive Metabolic Panel (04/27/17 20:43) Prothrombin Time / Inr (Pt) (04/27/17 20:43) Act Partial Throm Time (Ptt) (04/27/17 20:43) Lactic Acid Sepsis Protocol (04/27/17 20:43) Urinalysis - C+S If Indicated (04/27/17 20:43) Blood Culture (04/27/17 20:43) Chest, Single Ap (04/27/17 20:43) Blood Glucose (04/27/17 20:43) Ecg Monitoring (04/27/17 20:43) Iv Access Insert/Monitor (04/27/17 20:43) Oximetry (04/27/17 20:43) Oxygen Administration (04/27/17 20:43) Sodium Chlor 0.9% 1000 Ml Inj (Ns 1000 M (04/27/17 20:43) Sodium Chlor 0.9% 1000 Ml Inj (Ns 1000 M (04/27/17 20:43) Labs Laboratory Tests Test 04/27/17 21:29 White Blood Count 4.1 TH/MM3 Red Blood Count 3.69 MIL/MM3 Hemoglobin 10.9 GM/DL Hematocrit 33.1 % Mean Corpuscular Volume 89.7 FL Mean Corpuscular Hemoglobin 29.5 PG Mean Corpuscular Hemoglobin Concent 32.9 % Red Cell Distribution Width 14.1 % Platelet Count 325 TH/MM3 Mean Platelet Volume 8.6 FL Neutrophils (%) (Auto) 37.6 % Lymphocytes (%) (Auto) 39.5 % Monocytes (%) (Auto) 18.1 % Eosinophils (%) (Auto) 3.5 % Basophils (%) (Auto) 1.3 % Neutrophils # (Auto) 1.5 TH/MM3 Lymphocytes # (Auto) 1.6 TH/MM3 Monocytes # (Auto) 0.7 TH/MM3 Eosinophils # (Auto) 0.1 TH/MM3 Basophils # (Auto) 0.1 TH/MM3 CBC Comment DIFF FINAL Differential Comment Prothrombin Time 11.1 SEC Prothromb Time International Ratio 1.1 RATIO Activated Partial Thromboplast Time 25.7 SEC Urine Color LIGHT-YELLOW Urine Turbidity CLEAR Urine pH 6.5 Urine Specific [place] 1.014 Urine Protein NEG mg/dL Urine Glucose (UA) NEG mg/dL Urine Ketones NEG mg/dL Urine Occult Blood NEG Urine Nitrite NEG Urine Bilirubin NEG Urine Urobilinogen LESS THAN 2.0 MG/DL Urine Leukocyte Esterase NEG Urine WBC 1 /hpf Microscopic Urinalysis Comment CATH-CULT NOT IND Blood Urea Nitrogen 10 MG/DL Creatinine 1.04 MG/DL Random Glucose 87 MG/DL Total Protein 7.8 GM/DL Albumin 3.3 GM/DL Calcium Level 8.5 MG/DL Alkaline Phosphatase 78 U/L Aspartate Amino Transf (AST/SGOT) 40 U/L Alanine Aminotransferase (ALT/SGPT) 59 U/L Total Bilirubin 0.2 MG/DL Sodium Level 139 MEQ/L Potassium Level 4.2 MEQ/L Chloride Level 108 MEQ/L Carbon Dioxide Level 24.8 MEQ/L Anion Gap 6 MEQ/L Estimat Glomerular Filtration Rate 99 ML/MIN Lactic Acid Level 1.1 mmol/L [facility] Medical Decision Making Medical Screen Exam Complete: Yes Emergency Medical Condition: Yes Medical Record Reviewed: Yes Differential Diagnosis Marcio Ty syndrome, TEN, DRESS, second-degree ogden, staph scalded skin syndrome Narrative Course 36-year-old male with worsening sloughing rash which appears systemic. See Dr. Arredondo note for complete medical decision making. 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
--- NOTE | 2017-04-27 21:11 | RADRPT ---
EXAM DATE/TIME: 04/27/2017 20:55 [facility] COMPARISON: No previous studies available for comparison. INDICATIONS : Cough. MEDICAL HISTORY : None. SURGICAL HISTORY : None. ENCOUNTER: [facility] ACUITY: 2 weeks PAIN SCORE: 0/10 LOCATION: Bilateral chest FINDINGS: A single view of the chest demonstrates the lungs to be symmetrically aerated without evidence of mas s, infiltrate or effusion. The cardiomediastinal contours are unremarkable. Osseous structures are intact. CONCLUSION: 1. No focal consolidation. Mild scoliosis. Mannie Argueta MD on April 27, 2017 at 21:09 Board Certified Radiologist. This report was verified electronically.
[2017-04-27 21:39] VITALS: O2SAT 100
[2017-04-27 21:49] LABS: AUTOMATED NEUTROPHIL # 1.5 TH/MM3 (1.8-7.7); BASOPHIL # 0.1 TH/MM3 (0-0.2); BASOPHIL % 1.3 % (0.0-2.0); EOSINOPHIL # 0.1 TH/MM3 (0-0.4); EOSINOPHIL % 3.5 % (0.0-4.0); HEMATOCRIT 33.1 % (39.0-51.0); HEMO FLAGS DIFF FINAL; LYMPH % 39.5 % (9.0-44.0); LYMPHOCYTE # 1.6 TH/MM3 (1.0-4.8); MEAN CELL VOLUME 89.7 FL (80.0-100.0); MEAN CORPUSCULAR HEMOGLOBIN 29.5 PG (27.0-34.0); MEAN CORPUSCULAR HGB CONC 32.9 % (32.0-36.0); MONO % 18.1 % (0.0-8.0); NEUT % 37.6 % (16.0-70.0); PLATELET COUNT 325 TH/MM3 (150-450); RED BLOOD COUNT 3.69 MIL/MM3 (4.50-5.90); RED CELL DISTRIBUTION WIDTH 14.1 % (11.6-17.2); WHITE BLOOD COUNT 4.1 TH/MM3 (4.0-11.0)
[2017-04-27 21:59] LABS: APTT (PATIENT) 25.7 SEC (24.3-30.1); INTERNATIONAL NORMALIZED RATIO 1.1 RATIO; PROTHROMBIN TIME - PATIENT 11.1 SEC (9.8-11.6)
[2017-04-27 22:20] LABS: ALKALINE PHOSPHATASE 78 U/L (45-117); ALT (GPT) 59 U/L (12-78); TOTAL BILIRUBIN ADULT 0.2 MG/DL (0.2-1.0)
[2017-04-27 22:32] LABS: ANION GAP 6 MEQ/L (5-15); AST (GOT) 40 U/L (15-37); BICARBONATE 24.8 MEQ/L (21.0-32.0); BLOOD UREA NITROGEN 10 MG/DL (7-18); CHLORIDE 108 MEQ/L (98-107); GLOMERULAR FILTRATION RATE 99 ML/MIN (>89); POTASSIUM 4.2 MEQ/L (3.5-5.1); SODIUM (NA) 139 MEQ/L (136-145)
[2017-04-27 23:03] LABS: BLOOD, URINE NEG (NEG); GLUCOSE,URINE NEG (NEG); KETONE, URINE NEG (NEG); NITRITE,URINE NEG (NEG); PH, URINE 6.5 (5.0-8.5); URINE COLOR LIGHT-YELLOW (YELLW/STRAW)
[2017-04-27 23:11] LABS: COMMENT (UR) CATH-CULT NOT IND; CULTURE IF INDICATED CATH CULTURE NOT IND
--- NOTE | 2017-04-27 23:17 | PD ---
Data Data Last Documented VS Vital Signs Date Time Temp Pulse Resp B/P (MAP) Pulse Ox O2 Delivery O2 Flow Rate FiO2 04/27/17 21:39 18 04/27/17 21:39 100 Room Air 04/27/17 21:39 04/27/17 20:15 98.5 98 Orders Orders Complete Blood Count With Diff (04/27/17 20:43) Comprehensive Metabolic Panel (04/27/17 20:43) Prothrombin Time / Inr (Pt) (04/27/17 20:43) Act Partial Throm Time (Ptt) (04/27/17 20:43) Lactic Acid Sepsis Protocol (04/27/17 20:43) Urinalysis - C+S If Indicated (04/27/17 20:43) Blood Culture (04/27/17 20:43) Chest, Single Ap (04/27/17 20:43) Blood Glucose (04/27/17 20:43) Ecg Monitoring (04/27/17 20:43) Iv Access Insert/Monitor (04/27/17 20:43) Oximetry (04/27/17 20:43) Oxygen Administration (04/27/17 20:43) Sodium Chlor 0.9% 1000 Ml Inj (Ns 1000 M (04/27/17 20:43) Sodium Chlor 0.9% 1000 Ml Inj (Ns 1000 M (04/27/17 20:43) Labs Laboratory Tests Test 04/27/17 21:29 White Blood Count 4.1 TH/MM3 Red Blood Count 3.69 MIL/MM3 Hemoglobin 10.9 GM/DL Hematocrit 33.1 % Mean Corpuscular Volume 89.7 FL Mean Corpuscular Hemoglobin 29.5 PG Mean Corpuscular Hemoglobin Concent 32.9 % Red Cell Distribution Width 14.1 % Platelet Count 325 TH/MM3 Mean Platelet Volume 8.6 FL Neutrophils (%) (Auto) 37.6 % Lymphocytes (%) (Auto) 39.5 % Monocytes (%) (Auto) 18.1 % Eosinophils (%) (Auto) 3.5 % Basophils (%) (Auto) 1.3 % Neutrophils # (Auto) 1.5 TH/MM3 Lymphocytes # (Auto) 1.6 TH/MM3 Monocytes # (Auto) 0.7 TH/MM3 Eosinophils # (Auto) 0.1 TH/MM3 Basophils # (Auto) 0.1 TH/MM3 CBC Comment DIFF FINAL Differential Comment Prothrombin Time 11.1 SEC Prothromb Time International Ratio 1.1 RATIO Activated Partial Thromboplast Time 25.7 SEC Urine Color LIGHT-YELLOW Urine Turbidity CLEAR Urine pH 6.5 Urine Specific [place] 1.014 Urine Protein NEG mg/dL Urine Glucose (UA) NEG mg/dL Urine Ketones NEG mg/dL Urine Occult Blood NEG Urine Nitrite NEG Urine Bilirubin NEG Urine Urobilinogen LESS THAN 2.0 MG/DL Urine Leukocyte Esterase NEG Urine WBC 1 /hpf Microscopic Urinalysis Comment CATH-CULT NOT IND Blood Urea Nitrogen 10 MG/DL Creatinine 1.04 MG/DL Random Glucose 87 MG/DL Total Protein 7.8 GM/DL Albumin 3.3 GM/DL Calcium Level 8.5 MG/DL Alkaline Phosphatase 78 U/L Aspartate Amino Transf (AST/SGOT) 40 U/L Alanine Aminotransferase (ALT/SGPT) 59 U/L Total Bilirubin 0.2 MG/DL Sodium Level 139 MEQ/L Potassium Level 4.2 MEQ/L Chloride Level 108 MEQ/L Carbon Dioxide Level 24.8 MEQ/L Anion Gap 6 MEQ/L Estimat Glomerular Filtration Rate 99 ML/MIN Lactic Acid Level 1.1 mmol/L [facility] Supervised Visit with RACHID: Yes Differential Diagnosis Cowart-Ty syndrome, toxic epidermal necrolysis, dress syndrome Narrative Course I have reviewed the patient's electronic medical record. I reviewed his prior ER visits and admission history and physical as well as infectious disease consultation from admission He first received Bactrim 1 month ago and then a second prescription on 15 April This case is very challenging. I assumed care of the patient from DOREEN Humphrey. The patient has a systemic sloughing of skin in large sheets. I don't see any mucous membrane involvement We reviewed with both hospitalist and molding machine setter that neither felt comfortable accepting the patient They recommended transfer to burn Center in [place] Patient's labs are normal and vitals are normal However it certainly seems like this process is going to continue and worsen and this patient will be an real trouble if just discharged to outpatient follow -up Therefore I spoke with Dr. Simpson who is on-call for the burn center at [facility]. He accepted transfer and recommended we send him by ground ambulance to the [facility] emergency room and they will evaluate him there and determine where exactly he should go and what they should do. We will send copies of the workup. 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
[2017-04-28 00:52] VITALS: BP 157/79; PULSE 97; RESP 18; O2SAT 100
== END 2017-04-28 00:57 | disposition short-term general hospital (02) ==
LOC: NEPD 20:12
DX: R23.4 Changes in skin texture (principal); L51.3 Stevens-Johnson syndrome-toxic epidermal necrolysis overlap syndrome; M41.9 Scoliosis, unspecified; Z72.0 Tobacco use
CPT/HCPCS: 71010; 80053; 81001; 83605; 85025; 85610; 85730; 87040; 99285; J7030